=== PATIENT | male | born 1995 | race Caucasian/White ===

== ENCOUNTER 2017-01-27 17:24 | Inpatient (IN) | payer BC, OTHER ==
[~2017-01-27] VITALS: Ht 175.3 cm; Wt 54.4 kg
[2017-01-27 18:17] VITALS: BP 126/74
--- NOTE | 2017-01-27 18:20 | NUR ---
PREADMISSION NOTE Pt is a 21 y/o male admitted [facility] on 01/27/17 for Heroin and Meth dependency and withdrawals. Pt is full code regular diet no fall precautions denies any food or drug allergies, Pt is 5'9 and weights 120lb, Skin is warm dry and intact, pt presented with chills, and irritability. Pt reports using Heroin first time use at age 17, pt has been using 1 gram IV for the past year, last time used was yesterday 1 gram IV, Pt also reports using Meth by smoking, first time use was at age 18, he has been using 0.5 grams daily for a year, last use was yesterday pt smoked 0.5 grams. Pt reported longest being sober for 6 months which was from January 2015 to August 2014. Pt's initial vitals are as BP 126/74, Pulse:130, RR:19 O2 sat 99% 0/10 pain. Pt is placed on a 5 day Subutex taper and a 24hr PRN Ativan. All pertinent information given to rn shift mgr nurse. Addendum: 01/27/17 at 1921 by BRYANNA PINTO RN correction pt has been Sober for January 2015- August 2015 also pts initial COWS is MD katie mendez orders in.
[2017-01-27] MEDS ORDERED: NICOTINE POLACRILEX 4 MG GUM-PK OF TEN BC PRN (18:30)
[2017-01-27] MEDS ORDERED: ONDANSETRON ODT 4 MG TAB.RAPDIS SL PRN (18:30)
[2017-01-27] MEDS ORDERED: DICYCLOMINE HCL 20 MG TABLET PO PRN (18:30)
[2017-01-27] MEDS ORDERED: IBUPROFEN 600 MG TABLET PO PRN (18:30)
[2017-01-27] MEDS ORDERED: CLONIDINE HCL 0.1 MG TABLET PO PRN (18:30)
[2017-01-27] MEDS ORDERED: ONDANSETRON 4 MG/2 ML VIAL IM PRN (18:30)
[2017-01-27] MEDS ORDERED: MAG HYDROX/AL HYDROX/SIMETH 30 ML LIQUID UDC PO PRN (18:30)
[2017-01-27] MEDS ORDERED: LORAZEPAM 2 MG/1 ML VIAL IM PRN (18:30)
[2017-01-27] MEDS ORDERED: ACETAMINOPHEN 325 MG TABLET PO PRN (18:30)
[2017-01-27] MEDS ORDERED: MIRALAX 17 GM POWD.PACK PO PRN (18:30)
[2017-01-27] MEDS ORDERED: diphenhydrAMINE 50 MG CAPSULE PO PRN (18:30)
[2017-01-27] MEDS ORDERED: BUPRENORPHINE HCL 2 MG TAB.SUBL SL PRN (18:30)
[2017-01-27] MEDS ORDERED: LOPERAMIDE HCL 2 MG CAPSULE PO PRN ×2 (18:30)
[2017-01-27] MEDS ORDERED: NICOTINE 14 MG/24HR PATCH TD PRN (18:30)
[2017-01-27 18:50] LABS: *AMPHETAMINE, URINE POSITIVE (NEGATIVE); *BARBITURATE, URINE NEGATIVE (NEGATIVE); *CANNABINOID, URINE NEGATIVE (NEGATIVE); *COCCAINE, URINE POSITIVE (NEGATIVE); *OPIATE, URINE POSITIVE (NEGATIVE); *PHENCYCLIDINE SCREEN,URINE NEGATIVE (NEGATIVE)
--- NOTE | 2017-01-27 19:30 | NUR ---
START OF SHIFT Patient arrived on the unit at 1806. Day shift nurse began admission process. hourly shift will complete admission. Patient is alert and oriented x4, and reports symptoms of withdrawal: restlessness, anxiety, chills/flushing, and generalized body aches. Respirations are even and unlabored. Safety measures in place, side rails up x2, bed locked in low position. Will continue to monitor.
[2017-01-27 19:48] LABS: BASOPHILS % (AUTO) 0.2 % (0.0-2.0); EOSINOPHILS # (AUTO) 0.1 K/uL (0.0-0.7); EOSINOPHILS % (AUTO) 0.7 % (0.0-7.0); HEMATOCRIT 42.2 % (40-50); HEMOGLOBIN 14.3 G/DL (14.0-18.0); LYMPHOCYTES # (AUTO) 0.8 K/UL (0.8-4.8); LYMPHOCYTES % (AUTO) 9.9 % (20.5-51.5); MEAN CORPUSCULAR HEMOGLOBIN 28.4 UUG (27.0-31.0); MEAN CORPUSCULAR HGB CONC 34 g/dL (32.0-37.0); MEAN CORPUSCULAR VOLUME 83.7 FL (82.0-92.0); MONOCYTES # (AUTO) 0.5 K/UL (0.1-1.30); MONOCYTES % (AUTO) 6.3 % (0.0-11.0); NEUTROPHILS # (AUTO) 6.9 K/UL (1.8-8.9); NEUTROPHILS % (AUTO) 82.9 % (38.5-71.5); PLATELET COUNT (AUTO) 250 K/UL (150-450); RED BLOOD CELL COUNT(AUTO) 5.04 MIL/UL (4.7-6.1); WHITE BLOOD COUNT (AUTO) 8.3 K/UL (4.0-11.2)
[2017-01-27 20:00] VITALS: BP 108/62
[2017-01-27 20:00] LABS: ALANINE AMINOTRANSFERASE 42 U/L (16-63); ALKALINE PHOSPHATASE 77 U/L (50-136); ASPARTATE AMINOTRANSFERASE 27 U/L (15-37); BILIRUBIN,TOTAL 0.4 mg/dL (0.2-1.0); CARBON DIOXIDE 21 mmol/L (21-32); CHLORIDE 105 mmol/L (98-107); CREATININE 0.7 mg/dL (0.6-1.3); GLUCOSE 137 mg/dL (74-106); POTASSIUM 3.7 mmol/L (3.5-5.1); TOTAL PROTEIN, SERUM 6.8 g/dL (6.4-8.2); UREA NITROGEN, BLOOD 10 mg/dL (7-18)
[2017-01-27] MEDS: LORAZEPAM 1 MG TABLET PO PRN ×2 (20:00→22:25)
--- NOTE | 2017-01-27 20:00 | NUR ---
PRN ATIVAN Patient's CIWA is 16, PRN Ativan given PO as ordered for CIWA of 16 or higher. Patient's respirations are 20/min, even and unlabored. Safety measures in place, side rails up x2, bed locked in low position, call light within reach. Will reassess in one hour. Addendum: 01/28/17 at 0530 by RAFAEL BEY LVN Dosage: 2mg
--- NOTE | 2017-01-27 20:00 | NUR ---
ADMISSION NOTE Patient is a 21 y/o male admitted on 01/27/17 for heroin and methamphetamine dependence, arrived on the unit at 1806. Pt has NKA, denies history of seizures, FULL code and on regular diet. Pt was able to provide UDS. Upon admission COWS was 15, BP 126/74, Pulse:130, RR:19 O2 sat 99% 0/10 pain, T: 98.6. Weight 120, height 59". Pt reports he does not have a PCP, smokes about a pack a day, but is trying to cut down. Patient denies being hospitalized within past 30 days. Patient is able to understand and respond to all questions pertaining to his hospitalization. Substance Abuse History is as follows: 1. Heroin (IV) 1 gram daily, last intake of 1 pint on 01/26/17, at this rate for the past year. 2. Methamphetamines (smoke inhalation) 0.5 gram daily, last intake of 0.5 gram on 01/26/17, at this rate for past year. Patient's longest sober period for 6 months from January 2015-August 2015. Treatment history: Pt reports one previous treatment history, [facility] [id number]. Patient also reports [employer]. Pt reports alcoholism on his mother's side of the family. PMH: Anxiety and ADHD. Patient denies any hx of seizures. Patient did not bring any medications from home, but reports having taken Seroquel in the past to help him sleep. Upon assessment, patient is alert and oriented x4, patient states he is feeling "dope sick" reporting the following symptoms: restless legs, anxiety, pins and needles, chills/flushing, and generalized body aches. Respirations are even and unlabored. Denies SOB, chest pain, N/V/D. Bowel sounds active x 4, abdomen soft and non-tender. PERRLA. Skin intact, no open wounds noted. Pt denies SI/HI. Educational information provided and left at bedside. Pt oriented to room and encouraged to notify staff with any concerns. Patient on fall and seizure precautions. Safety measures in place. Call light within reach, side rails up x 2, bed locked and in low position. Will continue to monitor.
[2017-01-27] MEDS: BUPRENORPHINE HCL 2 MG TAB.SUBL SL SCH ×2 (20:01→21:25)
[2017-01-27 20:12] LABS: ETHANOL < 3 MG/DL (0-0)
--- NOTE | 2017-01-27 21:00 | NUR ---
PRN ATIVAN REASSESSMENT Patient reports feeling only "slightly" better. Patient's respirations 20/min, even and unlabored. CIWA remains 16. It appears that PRN Ativan was not effective. Safety measures in place, call light within reach. Will continue to monitor.
--- NOTE | 2017-01-27 22:25 | NUR ---
PRN ATIVAN Patient's CIWA is 16, PRN Ativan 2mg given PO as ordered for CIWA of 16 or higher. Patient's respirations are 20/min, even and unlabored. Safety measures in place, side rails up x2, bed locked in low position, call light within reach. Will reassess in one hour.
--- NOTE | 2017-01-27 23:05 | NUR ---
PRN BENADRYL Patient reports inability to sleep and is requesting aid. PRN Benadryl 50mg given PO. Patient's respirations are even and unlabored. Safety measures in place, side rails up x2, bed locked in low position, call light within reach. Will reassess in one hour.
--- NOTE | 2017-01-27 23:25 | NUR ---
PRN ATIVAN REASSESSMENT Patient reports that he "felt better for a few minutes, then started to feel sick again." PRN Ativan seems ineffective at this time. Patient's respirations are 20/min, even and unlabored. Safety measures in place, side rails up x2, bed locked in low position, call light within reach. Will continue to monitor.
[2017-01-28] VITALS: BP 108/71
--- NOTE | 2017-01-28 00:05 | NUR ---
PRN BENADRYL REASSESSMENT Patient is laying awake in bed, reporting anxiety and restlessness. Patient feels that PRN Benadryl was not effective. SN encouraged relaxation techniques and deep breathing. Safety measures in place, side rails up x2, bed locked in low position, call light within reach. Will continue to monitor.
[2017-01-28] MEDS: LORAZEPAM 1 MG TABLET PO PRN (00:42)
--- NOTE | 2017-01-28 00:42 | NUR ---
PRN MOTRIN AND ATIVAN Patient reports muscle aches of 5/10, mid to lower back pain. Patient's current CIWA score is 15. PRN Motrin 600mg and PRN Ativan 1mg given PO. Patient's respirations are 18/min, even and unlabored. Safety measures in place, side rails up x2, bed locked in low position, call light within reach. Will reassess in one hour.
--- NOTE | 2017-01-28 01:42 | NUR ---
PRN MOTRIN AND ATIVAN REASSESSMENT Patient is resting in bed with eyes closed, respirations 18/min, even and unlabored. PRN Motrin and Ativan effective. Safety measures in place, side rails up x2, bed locked in low position, call light within reach. Will continue to monitor.
--- NOTE | 2017-01-28 04:00 | NUR ---
4AM VITALS REFUSED, COWS DEFERRED Patient refused 4AM vital signs. COWS deferred due to patient sleeping; to be scored and assessed while patient is awake per protocol. Patient's respirations are even and unlabored, 16/min. Safety measures in place, side rails up x2, bed locked in low position, call light within reach. Will continue to monitor.
--- NOTE | 2017-01-28 07:10 | NUR ---
start of Shift endorsement received from nightshift nurse. PT is a 21 y/o male admitted for Heroin and Meth dependence. Pt has been placed on a 5 day Subutex taper. PT is also receiving PRN Ativan for anxiety. PT is experiencing moderate to severe withdrawal symptoms AEB COWS 15, CIWA 15 at 2100. PT Received PRN Ativan x3, Motrin x1, Benadryl x1. Pt reports sleeping 5 hours. Pt is sleeping at this time, breathing even and unlabored. Responsive to name and touch. VS WNL. Full Code. PT is alert and oriented x4. Pt is in STABLE condition at this time. Remains compliant with medication and diet regimen. All needs have been met, All safety measures in place per hospital policy. Bed in lowest position, side rails up x2, call-light within reach. Will continue to monitor
--- NOTE | 2017-01-28 07:10 | NUR ---
END OF SHIFT Patient is a 21-year-old male admitted on 01/27/17 for heroin and methamphetamine dependence, arrived on the unit at 1806. Pt has NKA, denies history of seizures, FULL code and on regular diet. Patient is on a 5-day Subutex taper. Patient received the following PRNs during shift: Ativan 2mg at 2000, Ativan 2mg at 2225, Benadryl 50mg at 2305, and PRN Motrin 600mg and Ativan 1mg at 0042. Patient slept for 5 hours, total intake was 1,335 mL, void x2, stool x0. Last COWS was 15, last CIWA for PRN Ativan was 15. Patient is on fall and seizure precautions. Safety measures in place, side rails up x2, bed locked in low position, call light within reach. Will endorse to day shift.
[2017-01-28 08:00] VITALS: BP 102/66
[2017-01-28] MEDS ORDERED: TUBERCULIN,PURIF.PROT.DERIV. 5 TU/0.1 ML TEST ID ONE ×2 (09:00→11:00)
[2017-01-28] MEDS ORDERED: BUPRENORPHINE HCL 2 MG TAB.SUBL SL SCH (09:00)
[2017-01-28 12:00] VITALS: BP 106/50
[2017-01-28] MEDS ORDERED: BUPRENORPHINE HCL 2 MG TAB.SUBL SL ONE (13:00)
[2017-01-28 16:00] VITALS: BP 99/64
[2017-01-28] MEDS ORDERED: LORAZEPAM 1 MG TABLET PO ONE ×2 (16:00→21:00)
[2017-01-28] MEDS: BUPRENORPHINE HCL 2 MG TAB.SUBL SL SCH ×2 (16:35→21:51)
--- NOTE | 2017-01-28 19:09 | NUR ---
End of Shift Endorsement given to nightshift nurse. PT is a 21 y/o male admitted for Heroin and Meth dependence. Pt has been placed on a 5 day Subutex taper. PT has received one time dose of Ativan per Dr. Mahan. PT is experiencing moderate symptoms of withdrawal AEB COWS 5 at 1600. PT did not receive any PRN medications. Pt has spent most of the day in his room sleeping. Pt is sleeping at this time, breathing even and unlabored. Pt reports feeling tired and just wants to rest. Responsive to name and touch. VS WNL. Full Code. Intake: 1600ml, Void x2, BM x1. PT is alert and oriented x4. Pt is in STABLE condition at this time. Remains compliant with medication and diet regimen. All needs have been met, All safety measures in place per hospital policy. Bed in lowest position, side rails up x2, call-light within reach. Will continue to monitor
--- NOTE | 2017-01-28 19:15 | NUR ---
Start of Shift Patient Received. Patient is in his room sleeping. Breathing even and non labored. No signs of pain or discomfort noted. Patient is a 21 year old male, admitted on 01/27/17 for Opiate Dependence under the care of Dr. Mahan and is currently receiving a 5 day Subutex taper. Patient verbalizes no known allergies, wishes to be full code, following a regular diet, placed on fall and seizure precautions, with skin noted intact. Patients past medical history noted as anxiety and ADHD. Per endorsement, patients last COWS noted to be 5. All needs attended to promptly. Will continue plan of care as ordered.
[2017-01-28 21:04] VITALS: BP_SYST 104; BP_SYST 99; BP_DIAS 59; BP_DIAS 89
[2017-01-28] MEDS: GABAPENTIN 300 MG CAPSULE PO SCH (21:51)
[2017-01-29] VITALS: BP 96/64
[2017-01-29 04:15] VITALS: BP 100/63
--- NOTE | 2017-01-29 07:13 | NUR ---
End of Shift Patient is in bed sleeping. Breathing even and non labored. Patient is a 21 year old male, admitted on 01/27/17 for Opiate Dependence under the care of Dr. Mahan and is currently receiving a 5 day Subutex taper. No Known Allergies, Full Code, Regular Diet, placed on fall and seizure precautions, with skin noted intact. Patients past medical history noted as anxiety and ADHD. No PRN Medications administered. Last noted COWS 4. All needs attended to promptly. Will endorse to continue plan of care as ordered.
[2017-01-29 08:00] VITALS: BP 103/52
--- NOTE | 2017-01-29 08:00 | NUR ---
VSS 97.4-98-19 BP 103/52. SATS 97% ON ROOM AIR. COWS=6 PATIENT APPEARS SLIGHTLY WITHDRAWN, AND SEEMS TO BE IN A LIGHT PHASE OF WITHDRAWAL. PATIENT IS SLIGHTLY TREMULOUS AND SLIGHTLY ANXIOUS. PATIENT STATES THAT HE WILL PERFORM ADLS WITHOUT ASSIST. MAKES GOOD EYE TO EYE CONTACT, COOPERATES WITH NURSING CARE, HAS NO MEMORY LOSS, REPORTS A STEADY GAIT. PATIENT SHOWS NO SIGNS OF ACUTE CARDIAC/RESPIRATORY DISTRESS OR SUPPRESSION.
[2017-01-29] MEDS ORDERED: BUPRENORPHINE HCL 2 MG TAB.SUBL SL SCH ×2 (09:00→15:00)
[2017-01-29] MEDS: GABAPENTIN 300 MG CAPSULE PO SCH ×3 (10:06→20:49)
[2017-01-29 12:00] VITALS: BP 90/62
--- NOTE | 2017-01-29 12:00 | NUR ---
VSS 97.9-90-20 BP 90/62. SATS 99% ON ROOM AIR. PATIENT APPEARS RESTED AND SHOWS NO SIGNS OF WITHDRAWAL. COWS=6. PATIENT SHOWS NO SIGNS OF WITHDRAWAL. PATIENT ATE 75% ON LUNCH WITHOUT DIFFICULTY. PATIENT'S MOTHER DALTON GOMEZ CALLED AND WANTED INFORMATION ON WHAT MEDS THAT THE PATIENT WAS BEING TREATED FOR. NURSE CLEARLY DID NOT PROVIDE THIS INFORMATION THE TRUE IDENTITY OF THE MOTHER CANNOT BE CONFIRMED IN A PHONE CALL. TO PROTECT PATIENT CONFIDENTIALITY, NURSE OBTAINED MOTHER'S PHONE NUMBER AND GAVE IT TO DR. NGUYEN AND THE PATIENT. DR. NGUYEN CALLED AT EXT. [phone] AND STATED HE WOULD CALL THE MOTHER AT THE PHONE NUMBER PROVIDED. PATIENT ALSO CONFIRMED THAT HE WOULD CALL HIS MOTHER. PATIENT SHOWS NO SIGNS OF ACUTE CARDIAC/RESPIRATORY DISTRESS OR SUPPRESSION.
[2017-01-29] MEDS: BUPRENORPHINE HCL 2 MG TAB.SUBL SL SCH ×3 (12:49→20:49)
--- NOTE | 2017-01-29 14:01 | NUR ---
Patient is 21 y/o male who present to [facility] for medically supervised withdrawal from opiods. Tolerating current diet,eating 75-100% of meals Anthropometry: current weight 120lb,BMI 17.7-underweight, physical assessment report suggest mild/moderate fat and muslce loss to chest/lower ribs and clavicle regions labs: 01/27 glucose-137(h) medication:no DNI nutrition diagnosis: underweight related to substance use as evidenced by BMI 17.7 nutrition intervention: encourage continue with good po intake, rec HS monitor:po intake,weight,new labs outcome: maintain 75-100% of PO intake during hospital stay no N/V/D/C healthy weight gain toward goal during hospital stay Addendum: 01/30/17 at [address] Amended: Links added.
[2017-01-29] MEDS: LORAZEPAM 1 MG TABLET PO PRN ×3 (15:17→20:49)
[2017-01-29 16:00] VITALS: BP 104/60
--- NOTE | 2017-01-29 16:00 | NUR ---
VSS 98.1-89-20 BP 104/60. SATS 100% ON ROOM AIR. COWS=7. PATIENT OOB AND WENT OUT TO SMOKE. NO SIGNS OF ACUTE CARDIAC/RESPIRATORY DISTRESS OR SUPPRESSION. PATIENT REMAINS ON SUBUTEX TAPER.
[2017-01-29] MEDS: HYDROXYZINE PAMOATE 25 MG CAPSULE PO PRN (16:51)
[2017-01-29] MEDS: METHOCARBAMOL 750 MG TABLET PO PRN (16:51)
--- NOTE | 2017-01-29 17:06 | NUR ---
Client was prompted to attend group therapy. Client stated that he would make an effort to attend.
--- NOTE | 2017-01-29 18:00 | NUR ---
END OF SHIFT PATIENT WAS GIVEN ROBAXIN 750 MG, BENTYL 20 MG PO PRN, VISTARIL 25 MG PO PRN @ 17:00 HOURS. NURSE ALSO HAD TO ADD ATIVAN 2 MG PO PRN AGITATION AND RESTLESSNESS. PATIENT THEN WENT OUT TO SMOKE. AMBULATES WITH A STEADY GAIT. SHOWS NO SIGNS OF ACUTE CARDIAC/RESPIRATORY DISTRESS OR SUPPRESSION.
--- NOTE | 2017-01-29 19:10 | NUR ---
Start of Shift Patient Received. Patient is in activities room participating in group activities. Patient is a 21 year old male, admitted on 01/27/17 for Opiate Dependence under the care of Dr. Mahan and is currently receiving a 5 day Subutex taper. No Known Allergies, Full Code, Regular Diet, placed on fall and seizure precautions, with skin noted intact. Patients past medical history noted as anxiety and ADHD. Per endorsement, patient was given PRN Robaxin and Clonidine with medications noted to be effective. Last noted COWS 4. All needs attended to promptly. Will continue plan of care as ordered. Addendum: 01/30/17 at 2035 by SISSY GARCIAS LVN ENTERED IN ERROR
--- NOTE | 2017-01-29 19:25 | NUR ---
Start of Shift Patient Received. Patient is in activities room participating in group activities. Patient is a 21 year old male, admitted on 01/27/17 for Opiate Dependence under the care of Dr. Mahan and is currently receiving a 5 day Subutex taper. No Known Allergies, Full Code, Regular Diet, placed on fall and seizure precautions, with skin noted intact. Patients past medical history noted as anxiety and ADHD. Per endorsement, patient was given several PRN Medications for increased signs and symptoms of withdrawal. Last noted COWS 7. All needs attended to promptly. Will continue plan of care as ordered.
[2017-01-29 20:39] VITALS: BP 131/73
--- NOTE | 2017-01-29 20:50 | NUR ---
PRN Medication Administration Patient is noted verbalizing increased anxiety and agitation. CIWA noted to be 14. PRN Ativan 1mg administered with routine medications. Will continue to monitor
--- NOTE | 2017-01-29 21:40 | NUR ---
PRN Medication Reassessment Patient noted in bed sleeping but easily aroused to verbal stimuli. Breathing even and non labored. Patient is able to verbalized "the medication helped me relax. Im just going to hang out in my room and watch a movie till I fall asleep." PRN Ativan 1mg noted to be effective. Will continue to monitor.
[2017-01-30 00:25] VITALS: BP 103/71
[2017-01-30 04:26] VITALS: BP 98/63
[2017-01-30 05:06] LABS: HEPATITIS B SURFACE AG Negative (Negative)
--- NOTE | 2017-01-30 07:15 | NUR ---
End of Shift Patient is in his room, awake, alert and verbally responsive. Breathing even and non labored. Patient is a 44 year old male admitted on 01/26/17 for ETOH Dependence under the care of Dr. Mahan. Patient has completed a 5 day Ativan taper with orders to discharge today 01/30/17. No known allergies, Full Code, Regular Diet, placed on fall and seizure precautions, with skin noted intact. Patients past medical history noted as anxiety, depression, and Hep C (+). Patient refused 2100 dose of sleep medication and received PRN Vistaril and PRN Clonidine with both medications noted to be effective. Last noted CIWA 6. All needs attended to promptly. Will endorse to continue plan of care as ordered.
--- NOTE | 2017-01-30 07:43 | NUR ---
START OF SHIFT NOTE: Received report from veneer splicer nurse. PT is a 21 y/o male admitted for Heroin and Meth dependence. Pt has been placed on a 5 day Subutex taper. Tolerating well. Pt is alert and oriented X4. Color good, skin warm and dry. Respirations even and unlabored. Safety precautions observed. Call light within reach. Will continue to monitor.
[2017-01-30 08:35] VITALS: BP 110/63
[2017-01-30] MEDS ORDERED: INFLUENZA VACCINE 2017-2018 0.5 ML DISP.SYRIN IM ONE (09:00)
--- NOTE | 2017-01-30 09:00 | NUR ---
VSS COWS 4 Flu shot administered LD
[2017-01-30] MEDS: BUPRENORPHINE HCL 2 MG TAB.SUBL SL SCH ×3 (09:41→20:12)
[2017-01-30] MEDS: GABAPENTIN 300 MG CAPSULE PO SCH ×3 (09:41→20:12)
[2017-01-30 12:00] VITALS: BP 114/66
--- NOTE | 2017-01-30 14:37 | NUR ---
Pt still sleeping
--- NOTE | 2017-01-30 15:00 | NUR ---
VSS COWS 4 c/o anxiety, muscle aches
[2017-01-30 17:07] VITALS: BP 111/71
[2017-01-30] MEDS: METHOCARBAMOL 750 MG TABLET PO PRN (17:12)
--- NOTE | 2017-01-30 17:15 | NUR ---
C/O "not feeling well" muscle aches Robaxin 750mg po prn and Clonidine 0.1mg po prn given
--- NOTE | 2017-01-30 18:15 | NUR ---
Pt feels improved after Robaxin and Clonidine. Went downstairs for dinner.
--- NOTE | 2017-01-30 18:30 | NUR ---
END OF SHIFT NOTES: Report given to maintenance mechanic 2nd shift nurse. PT is a 21 y/o male admitted for Heroin and Meth dependence. Pt has been placed on a 5 day Subutex taper. Tolerating well. Pt is alert and oriented X4. Color good, skin warm and dry. Respirations even and unlabored. Vital signs have remained stable throughout shift. Robaxin 750mg po prn and Clonidine 0.1mg po prn 2 1715. Last COWS 4 @ 1500. Safety precautions observed. Call light within reach.
--- NOTE | 2017-01-30 19:10 | NUR ---
Start of Shift Patient Received. Patient is in activities room participating in group activities. Patient is a 21 year old male, admitted on 01/27/17 for Opiate Dependence under the care of Dr. Mahan and is currently receiving a 5 day Subutex taper. No Known Allergies, Full Code, Regular Diet, placed on fall and seizure precautions, with skin noted intact. Patients past medical history noted as anxiety and ADHD. Per endorsement, patient was given PRN Robaxin and Clonidine with medications noted to be effective. Last noted COWS 4. All needs attended to promptly. Will continue plan of care as ordered.
[2017-01-30 20:10] VITALS: BP 147/78
[2017-01-30] MEDS: QUETIAPINE FUMARATE 100 MG TABLET PO PRN (20:12)
--- NOTE | 2017-01-30 20:15 | NUR ---
PRN Medication Administration Patient verbalizing inability of falling asleep. PRN Seroquel administered as per order. Will continue to monitor.
--- NOTE | 2017-01-30 21:00 | NUR ---
PRN Medication Reassessment Patient noted in bed sleeping. Breathing even and non labored. Patient was given PRN Seroquel for inability of falling asleep. PRN Medication noted to be effective. patient continues to sleep with no complications noted. Will continue to monitor.
[2017-01-31 00:38] VITALS: BP 113/69
[2017-01-31 04:25] VITALS: BP 101/63
--- NOTE | 2017-01-31 07:09 | NUR ---
End of Shift Patient is in his bed sleeping. Breathing even and non labored. Patient is a 21 year old male, admitted on 01/27/17 for Opiate Dependence and continues on a 5 day Subutex taper. No Known Allergies, Full Code, Regular Diet, placed on fall and seizure precautions, with skin noted intact. Patients past medical history noted as anxiety and ADHD. Patient received PRN Seroquel for sleep with medication noted to be effective. Last noted COWS 9. All needs attended to promptly. Will endorse to continue plan of care as ordered.
--- NOTE | 2017-01-31 07:42 | NUR ---
START OF SHIFT NOTE: Received report from warehouse worker 2nd shift nurse. PT is a 21 y/o male admitted for Heroin and Meth dependence. Pt has been placed on a 5 day Subutex taper. Tolerating well. Pt is alert and oriented X4. Color good, skin warm and dry. Respirations even and unlabored. Safety precautions observed. Call light within reach. Will continue to monitor.
[2017-01-31 08:00] VITALS: BP 110/63
[2017-01-31] MEDS: BUPRENORPHINE HCL 2 MG TAB.SUBL SL SCH ×2 (09:25→21:00)
[2017-01-31] MEDS: GABAPENTIN 300 MG CAPSULE PO SCH ×3 (09:25→20:59)
[2017-01-31 12:56] VITALS: BP 110/69
[2017-01-31 16:00] VITALS: BP 110/69
--- NOTE | 2017-01-31 18:41 | NUR ---
END OF SHIFT NOTE: Report given to restaurant shift leader nurse. PT is a 21 y/o male admitted for Heroin and Meth dependence. Pt has been placed on a 5 day Subutex taper. Tolerating well. Pt is alert and oriented X4. Color good, skin warm and dry. Respirations even and unlabored. Vital signs have remained stable throughout shift. Last COWS 1 @ 1700. Safety precautions observed. Call light within reach.
--- NOTE | 2017-01-31 19:15 | NUR ---
START OF SHIFT NOTE : Patient is a 21 year old male, admitted on 01/27/17 for Opiate Dependence under the care of Dr. Mahan and is currently receiving a 5 day Subutex taper. No Known Allergies, Full Code, Regular Diet, placed on fall and seizure precautions, with skin noted intact. Patients past medical history noted as anxiety and ADHD. Patient received awake, alert and oriented x4, resting in his room. Safety measures in place : bed on lowest position with side rails x2 up for safety, call light within reach. Will continue to monitor closely and offer help.
[2017-01-31 20:00] VITALS: BP 115/77
[2017-01-31] MEDS: CLONIDINE HCL 0.1 MG TABLET PO SCH (20:59)
[2017-01-31] MEDS: HYDROXYZINE PAMOATE 25 MG CAPSULE PO PRN (20:59)
[2017-01-31] MEDS: QUETIAPINE FUMARATE 100 MG TABLET PO PRN (21:00)
--- NOTE | 2017-01-31 21:00 | NUR ---
PRN SEROQUEL , VISTARYL Pt. complains of increased level of anxiety, sleeplessness. PRN SEROQUEL , VISTARYL given as ordered. Safety measures in place : bed on lowest position with side rails x2 up for safety, call light within reach. Will continue to monitor closely and offer help.
--- NOTE | 2017-01-31 22:00 | NUR ---
RE-ASSESSMENT SEROELVIAL ANURAGTARYL Pt. is sleeping, RR=16, unlabored and even . Safety measures in place : bed on lowest position with side rails x2 up for safety, call light within reach. Will continue to monitor closely and offer help.
[2017-02-01] VITALS (7 sets, daily range): BP systolic 90–117; BP diastolic 36–70
--- NOTE | 2017-02-01 06:24 | NUR ---
END OF SHIFT NOTE : Patient is a 21 year old male, admitted on 01/27/17 for Opiate Dependence under the care of Dr. Mahan and is currently receiving a 5 day Subutex taper. No Known Allergies, Full Code, Regular Diet, placed on fall and seizure precautions, with skin noted intact. Patients past medical history noted as anxiety and ADHD. Pt remains compliant with the treatment plan. PRN SEROQUEL, VISTARIL were given during my shift. V/S remain WNL. RR=16, even and unlabored, lungs clear upon auscultation, abdomen soft and non- distended. Pt denies nausea, vomiting and diarrhea. COWS taken when pt. was alert during the night, LAST COWS=2 at 0400 , [id number]=[id number] ml, voided x2 , slept 8 hours. Safety measures in place : bed on lowest position with side rails x2 up for safety, call light within reach. Will continue to monitor closely and offer help.
--- NOTE | 2017-02-01 07:30 | NUR ---
START OF SHIFT Pt is a 21 yr old male, AA&Ox4. Pt was admitted on 01/27/17 for Opiate dependence and is on 5 day Subutex taper as ordered. Medication ying well. Received report from locate technician nurse. pt is full code, regular diet and NKA. Pt is on fall and seizure precautions. Pt received Seroquel PRN for sleep. Medication was effective. Pt slept for 8 hrs. Last COWS score was 2 at 0400. Pt is currently in bed resting with respirations even and unlabored. No acute distress noted. Skin is intact, warm and dry to touch. Pt has Dx of Anxiety, ADHD, and Hep C. Safety precautions observed. Call light is within reach. Will continue to monitor.
[2017-02-01] MEDS ORDERED: BUPRENORPHINE HCL 2 MG TAB.SUBL SL SCH (09:00)
[2017-02-01] MEDS: GABAPENTIN 300 MG CAPSULE PO SCH ×3 (10:02→21:30)
--- NOTE | 2017-02-01 14:36 | NUR ---
Therapist prompted client about group times. Client stated he will attend group this afternoon.
--- NOTE | 2017-02-01 19:10 | NUR ---
END OF SHIFT Pt is a 21 yr old male, AA&Ox4. Pt was admitted on 01/27/17 for Opiate dependence and has completed 5 day Subutex taper as ordered. Medication ying well. Pt has been cooperative with medication regimen and plan of care. No PRN's were given during the day. Last COWS score was 2 at 1600. Pt is to be discharged at tomorrow on 02/02/17. Pt is in stable condition. Safety precautions observed. Call light is within reach.
--- NOTE | 2017-02-01 19:15 | NUR ---
START OF SHIFT NOTE : Patient is a 21 year old male, admitted on 01/27/17 for Opiate Dependence under the care of Dr. Mahan and is currently receiving a 5 day Subutex taper. No Known Allergies, Full Code, Regular Diet, placed on fall and seizure precautions, with skin noted intact. Patients past medical history noted as anxiety and ADHD. Patient received awake, alert and oriented x4, socializing with other clients.He will be D/C tomorrow. Safety measures in place : bed on lowest position with side rails x2 up for safety, call light within reach. Will continue to monitor closely and offer help.
[2017-02-01] MEDS: HYDROXYZINE PAMOATE 25 MG CAPSULE PO PRN (21:30)
[2017-02-01] MEDS: CLONIDINE HCL 0.1 MG TABLET PO SCH (21:30)
[2017-02-01] MEDS: QUETIAPINE FUMARATE 100 MG TABLET PO PRN (21:30)
[2017-02-01] MEDS ORDERED: DICY20TA28 PO (21:55)
[2017-02-01] MEDS ORDERED: QUET100T PO (21:55)
[2017-02-01] MEDS ORDERED: IBUP-1955 PO (21:55)
[2017-02-01] MEDS ORDERED: GABA-534 PO ×2 (21:55)
[2017-02-01] MEDS ORDERED: CLON0.1T14 PO (21:55)
[2017-02-01] MEDS ORDERED: HYDR-3895 PO (21:55)
[2017-02-01] MEDS ORDERED: METH-406 PO (21:55)
--- NOTE | 2017-02-02 06:41 | NUR ---
END OF SHIFT NOTE : Patient is a 21 year old male, admitted on 01/27/17 for Opiate Dependence under the care of Dr. Mahan and is currently receiving a 5 day Subutex taper. No Known Allergies, Full Code, Regular Diet, placed on fall and seizure precautions, with skin noted intact. Patients past medical history noted as anxiety and ADHD Pt remains compliant with the treatment plan. PRN SEROQUEL, VISTARIL were given during my shift. RR=16, even and unlabored, lungs clear upon auscultation, abdomen soft and non- distended. Pt denies nausea, vomiting and diarrhea. COWS taken when pt. was alert during the night, LAST COWS=1 at 0400 , INTAKE= 700 ml, voided x2 , slept 10 hours. Safety measures in place : bed on lowest position with side rails x2 up for safety, call light within reach. Will continue to monitor closely and offer help.
--- NOTE | 2017-02-02 07:36 | NUR ---
START OF SHIFT Received report from night nurse. 21 year old male admitted on 01/27/17 for opiate and meth withdrawals. Pt has completed 5 day Subutex taper and is medically cleared for discharge. Pt does not present with acute s/s of withdrawals throughout night and remains safe throughout hospitalization. Most recent COWS is 1, pt slept for 10 hours, no PRN medications needed or administered. Will continue to monitor.
[2017-02-02 08:39] VITALS: BP 100/60
[2017-02-02] MEDS: GABAPENTIN 300 MG CAPSULE PO SCH (09:29)
--- NOTE | 2017-02-02 09:50 | NUR ---
D/C NOTES Pt is A/O x4. V/S remain WNL. Pt denies SI/HI or hallucinations. Pt shows no s/s of acute withdrawal at this time, and is stable. has medically cleared pt for d/c. Education on Hepatitis C, smoking cessation and medication side effects provided. Pt verbalizes understanding. All pt belongings are in belonging bag, including prescriptions, pt did not have any home medications. Refuses PNU vaccination. Pt is being accompanied by SIGN LANGUAGE INTERPRETER at this time to be transported to rehab. All needs met.
== END 2017-02-02 09:50 | disposition other institution (70) | DRG 895 ==
LOC: SRC 17:24
PROVIDERS: ADMIT Internal Medicine; ATTEND Internal Medicine
PROC: HZ2ZZZZ Detoxification Services for Substance Abuse Treatment (ICD-10-PCS; principal; 2017-01-27)
PROC: HZ31ZZZ Individual Counseling for Substance Abuse Treatment, Behavioral (ICD-10-PCS; 2017-01-28)
PROC: HZ41ZZZ Group Counseling for Substance Abuse Treatment, Behavioral (ICD-10-PCS; 2017-01-30)
DX: F11.23 Opioid dependence with withdrawal (principal); F14.20 Cocaine dependence, uncomplicated; F15.93 Other stimulant use, unspecified with withdrawal; F17.210 Nicotine dependence, cigarettes, uncomplicated; Z59.0 Homelessness; Z81.1 Family history of alcohol abuse and dependence; Z82.49 Family history of ischemic heart disease and other diseases of the circulatory system; Z83.518 Family history of other specified eye disorder; F90.9 Attention-deficit hyperactivity disorder, unspecified type; Z91.89 Other specified personal risk factors, not elsewhere classified; Z20.5 Contact with and (suspected) exposure to viral hepatitis; F13.10 Sedative, hypnotic or anxiolytic abuse, uncomplicated; G47.50 Parasomnia, unspecified; R73.9 Hyperglycemia, unspecified; Z59.1 Inadequate housing; F41.9 Anxiety disorder, unspecified
CPT/HCPCS: 36415; 70030-TC; 80307; 80324; 80346; 80353; 80361; 83735; 85025; 86592; 86705; 86803; 87340; 87806; 90686; A4663; G0480; Q0163

== ENCOUNTER 2017-04-13 12:13 | Inpatient (IN) | payer BC, OTHER ==
[~2017-04-13] VITALS: Ht 175.3 cm; Wt 61.2 kg
[~2017-04-13 12:13] MED LIST: CLON0.1T14 PO; DICY20TA28 PO; GABA-534 PO; HYDR-3895 PO; IBUP-1955 PO; METH-406 PO; QUET100T PO
[2017-04-13 12:30] VITALS: BP 136/79
--- NOTE | 2017-04-13 12:30 | NUR ---
Initial Assessment Pt is a 22 y/o male, NKA's re-admission here with Opiate dependence r/t Heroin 0.5-1g IV or IM daily for the last month with the last use 1 day ago, Cocaine used occasionally of unknown amounts with the last use 2 weeks ago, Methamphetamine used occasionally of unknown amounts with the last use 1 month ago and Liquors used occasionally with the last use of wine last night of 2 bottles of 750mL. Pt smokes of 1 pack of cigarettes daily. PHx: ADHD, anxiety, Hep C+, insomnia & OD at age 19 from drugs. 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 No home medications brought but states that he takes Seroquel at home for insomnia. Pt denies ever having a seizure. Pt has returned here since his last admission 01/2017 and states that he has no stable living standards with his girlfriend and states the last time he had rehab was at [facility] 2014. Pt denies having an internal MD, no psychologist or psychiatrist. FHx of his bother with substance abuse. Pt is A&Ox 4, ambulatory independently & here with no intoxification. Features symmetrical, PERRLA 6mm very dilated, c/o mild CABRERA, no dizziness. Regular heart sounds, pt denies chest pain, pulses present on BLE's, BUE's, no edema, JVD or carotid pulsations noted. Clear lung sounds in bilateral U/L lobes, no SOB or acute respiratory distress noted. Active bowl sounds in all 4 quads, last BM 2 days ago, no constipation or diarrhea noted. Pt denies dysuria. Skin is not intact with tracts and nodules on BUE's and Bilateral feet, no open wounds noted. W/D symptoms of anxiety, irritable, is flushed with clammy skins, c/o hot flashes, chills, has nasal congestions and runny nose, watery eyes, sneezing, restlessness, HR 120, c/o ab cramps, body pain generalized 7/10, & goose bumps present. Temp 98.4, HR 120, RR 20, BP 136/79, SpO2 99% RA, 7/10 general pain COWS 22 CIWA 12
[2017-04-13] MEDS ORDERED: DICYCLOMINE HCL 20 MG TABLET PO PRN (13:15)
[2017-04-13] MEDS ORDERED: ONDANSETRON 4 MG/2 ML VIAL IM PRN (13:15)
[2017-04-13] MEDS ORDERED: HYDROXYZINE PAMOATE 25 MG CAPSULE PO PRN (13:15)
[2017-04-13] MEDS ORDERED: DOCUSATE SODIUM 250 MG CAPSULE PO PRN (13:15)
[2017-04-13] MEDS ORDERED: LOPERAMIDE HCL 2 MG CAPSULE PO PRN ×2 (13:15)
[2017-04-13] MEDS ORDERED: diphenhydrAMINE 50 MG CAPSULE PO PRN (13:15)
[2017-04-13] MEDS ORDERED: IBUPROFEN 600 MG TABLET PO PRN (13:15)
[2017-04-13] MEDS ORDERED: MAG HYDROX/AL HYDROX/SIMETH 30 ML LIQUID UDC PO PRN (13:15)
[2017-04-13] MEDS ORDERED: MAGNESIUM HYDROXIDE 30 ML LIQUID UDC PO PRN (13:15)
[2017-04-13] MEDS ORDERED: ACETAMINOPHEN 325 MG TABLET PO PRN (13:15)
[2017-04-13] MEDS ORDERED: BUPRENORPHINE HCL 2 MG TAB.SUBL SL PRN (13:15)
[2017-04-13] MEDS ORDERED: MIRALAX 17 GM POWD.PACK PO PRN (13:15)
[2017-04-13] MEDS ORDERED: ONDANSETRON ODT 4 MG TAB.RAPDIS SL PRN (13:15)
[2017-04-13] MEDS ORDERED: LORAZEPAM 1 MG TABLET PO SCH ×2 (13:30→21:00)
[2017-04-13] MEDS: BUPRENORPHINE HCL 2 MG TAB.SUBL SL SCH ×3 (13:39→21:38)
--- NOTE | 2017-04-13 13:40 | NUR ---
PRN Medication Administration Pt is in bed with anxiety, irritability, is flushed with clammy skins, PERRLA 6mm very dilated, c/o nausea, hot flashes, chills, has nasal congestions and runny nose, watery eyes, sneezing, restlessness, HR 120, c/o ab cramps, body pain generalized /, & goose bumps, COWS 22 CIWA 12; PRNs Motrin 600mg, Zofran 4mg SL, Bentyl 20mg PO, & Clonidine 0.1mg, with scheduled Subutex 4mg SL for initial dose. Will reassess in 1H.
[2017-04-13] MEDS: CLONIDINE HCL 0.1 MG TABLET PO PRN ×2 (13:41→21:39)
--- NOTE | 2017-04-13 14:30 | NUR ---
Reassessment Pt is resting in bed watching T.V. with decreased anxiety, restlessness, PERRLA 4mm, Radial pulse 108, denies ab cramps & denies nausea and states general pain is now 3/10; effective Motrin, Bentyl , Zofran and clonidine. Will cont. to monitor the pt.
[2017-04-13 15:45] LABS: *AMPHETAMINE, URINE NEGATIVE (NEGATIVE); *BARBITURATE, URINE NEGATIVE (NEGATIVE); *CANNABINOID, URINE NEGATIVE (NEGATIVE); *COCCAINE, URINE NEGATIVE (NEGATIVE); *OPIATE, URINE POSITIVE (NEGATIVE); *PHENCYCLIDINE SCREEN,URINE NEGATIVE (NEGATIVE)
[2017-04-13 16:00] VITALS: BP 121/73
[2017-04-13] MEDS: LORAZEPAM 1 MG TABLET PO PRN (16:31)
--- NOTE | 2017-04-13 16:34 | NUR ---
PRN Medication Administration Pt is in room with restlessness and anxiety, Radial pulse 110, pt denies chest pain; PRN Ativan 2mg given for anxiety with scheduled Subutex 4mg SL as ordered. Will reassess in 1H.
--- NOTE | 2017-04-13 17:30 | NUR ---
Reassessment Pt is in his room eating dinner, no anxiety present and he states that he feels calmer; Ativan is effective. Will cont.to monitor the pt.
--- NOTE | 2017-04-13 18:47 | NUR ---
End of the Shift Pt is a 22 y/o male here for Heroin IV 0.5-1g daily for 1 month, & Cocaine, Meth and Liquor occasionally; 5 day Subutex taper started today at 1300H. HHx: ADHD, anxiety, OD at age 19 yrs old, smoker, Hep C+. Pt is a full code, regular diet, NKA, fall precautions ordered. BP stable, HR 120bpm during admission yet decreased to 99 s/p taper and PRN medication administration. Pt given PRN Bentyl, Clonidine, Motrin, Zofran with initial scheduled Subutex taper, pt was still anxious at 1630 so PRN Ativan given. COWS decreased from 22 at admission to last COWS 13. Pt attended group therapy. No hallucinations, delusions or suicidal ideations noted. Skin has tracts on BUE's and BLE's with raised nodules, no open wounds noted. Endorsed to night nurse to f/u with blood draw.
--- NOTE | 2017-04-13 19:15 | NUR ---
START OF SHIFT NOTE : Pt is a 22 y/o male admitted top [facility] for Heroin, Cocaine denependence on 04/13/2017, pt. also use Meth and ETOH occasionally; Pt. placed 5 day Subutex taper started on 04/13/2017. Past Medical History: ADHD, anxiety, OD at age 19 yrs old, smoker, Hep C+. Pt is a full code, regular diet, NKA, fall precautions ordered. No hallucinations, delusions or suicidal ideations noted. Pt. is in the good mood, complains of sleeplessness and increased level of anxiety. Safety measures in place : bed on lowest position with side rails x2 up for safety, call light within reach. Will continue to monitor closely and offer help.
[2017-04-13 20:00] VITALS: BP 110/75
--- NOTE | 2017-04-13 21:00 | NUR ---
PRN CATAPRES Pt. complains of increased level of anxiety. PRN CLONIDINE given as ordered. Safety measures in place : bed on lowest position with side rails x2 up for safety, call light within reach. Will continue to monitor closely and offer help.
[2017-04-13] MEDS: GABAPENTIN 300 MG CAPSULE PO SCH (21:39)
[2017-04-13 21:43] LABS: BASOPHILS % (AUTO) 0.4 % (0.0-2.0); EOSINOPHILS # (AUTO) 0.1 K/uL (0.0-0.7); EOSINOPHILS % (AUTO) 0.9 % (0.0-7.0); HEMATOCRIT 40.4 % (36.7-47.1); HEMOGLOBIN 13.9 g/dL (12.5-16.3); LYMPHOCYTES # (AUTO) 2.1 K/uL (20.0-40.0); LYMPHOCYTES % (AUTO) 25.1 % (20.5-51.5); MEAN CORPUSCULAR HEMOGLOBIN 29.9 uug (23.8-33.4); MEAN CORPUSCULAR HGB CONC 34 g/dL (32.5-36.3); MEAN CORPUSCULAR VOLUME 86.9 fL (73.0-96.2); MONOCYTES # (AUTO) 0.5 K/uL (2.0-10.0); MONOCYTES % (AUTO) 6.5 % (0.0-11.0); NEUTROPHILS # (AUTO) 5.6 K/uL (1.8-8.9); NEUTROPHILS % (AUTO) 67.1 % (38.5-71.5); PLATELET COUNT (AUTO) 219 K/uL (152-348); RED BLOOD CELL COUNT(AUTO) 4.65 MIL/uL (4.06-5.63); WHITE BLOOD COUNT (AUTO) 8.3 K/uL (3.6-10.2)
[2017-04-13 21:54] LABS: ETHANOL < 3 MG/DL (0-0)
[2017-04-13 21:57] LABS: ALANINE AMINOTRANSFERASE 34 U/L (16-63); ALKALINE PHOSPHATASE 74 U/L (50-136); ASPARTATE AMINOTRANSFERASE 23 U/L (15-37); BILIRUBIN,TOTAL 0.3 mg/dL (0.2-1.0); CARBON DIOXIDE 26 mmol/L (21-32); CHLORIDE 106 mmol/L (98-107); CREATININE 1.1 mg/dL (0.6-1.3); GLUCOSE 112 mg/dL (74-106); MAGNESIUM 1.8 mg/dL (1.8-2.4); POTASSIUM 3.9 mmol/L (3.5-5.1); TOTAL PROTEIN, SERUM 6.8 g/dL (6.4-8.2); UREA NITROGEN, BLOOD 12 mg/dL (7-18)
--- NOTE | 2017-04-13 22:00 | NUR ---
RE-ASSESSMENT CATAPRES Pt. is sleeping, RR=16 unlabored and even. Safety measures in place : bed on lowest position with side rails x2 up for safety, call light within reach. Will continue to monitor closely and offer help.
[2017-04-14 04:00] VITALS: BP 108/60
--- NOTE | 2017-04-14 07:08 | NUR ---
END OF SHIFT NOTE : Pt is a 22 y/o male admitted top [facility] for Heroin, Cocaine denependence on 04/13/2017, pt. also use Meth and ETOH occasionally; Pt. placed 5 day Subutex taper started on 04/13/2017. Past Medical History: ADHD, anxiety, OD at age 19 yrs old, smoker, Hep C+. Pt is a full code, regular diet, NKA, fall precautions ordered. Pt remains compliant with the treatment plan. PRN Catapres given during my shift. V/S remain WNL. RR=16, even and unlabored, lungs clear upon auscultation, abdomen soft and non- distended. Pt denies nausea, vomiting and diarrhea. COWS taken when pt. was alert during the night, LAST CIWA=3 at 0400 , INTAKE= 3,123 ml, voided x3 , slept 6 hours. Safety measures in place : bed on lowest position with side rails x2 up for safety, call light within reach. Will continue to monitor closely and offer help.
--- NOTE | 2017-04-14 07:39 | NUR ---
Start of shift note; Received report from night nurse. Patient is a 22 year old male admitted on 04/13/17 for Opioid withdrawals. Patient is AOX4, complaining of muscle aches, hot and cold sweats, anxiety and intermittent nausea. Patient was started on a 5 day Subutex taper on 04/13/17 to help reduce withdrawal symptoms. Educated patient regarding the importance of compliance to treatment and medication regime, patient verbalized understanding. Encouraged patient to maintain adequate fluids and nutrition, patient verbalized understanding. All safety measures secured. Will continue to monitor patient.
[2017-04-14 08:00] VITALS: BP 102/68
[2017-04-14] MEDS ORDERED: TUBERCULIN,PURIF.PROT.DERIV. 5 TU/0.1 ML TEST ID ONE (09:00)
[2017-04-14] MEDS: BUPRENORPHINE HCL 2 MG TAB.SUBL SL SCH ×3 (09:36→21:27)
[2017-04-14] MEDS: GABAPENTIN 300 MG CAPSULE PO SCH ×3 (09:36→21:27)
[2017-04-14] MEDS: LORAZEPAM 1 MG TABLET PO PRN (10:09)
--- NOTE | 2017-04-14 10:09 | NUR ---
PRN medication; Patient is AOX4. Patient appears to be very anxious and agitated. Non-pharmacological relaxation techniques ineffective. Current COWS of 13 noted manifested by increase in anxiety and agitation, diaphoreses, stomach cramps, muscle aches, HR of 100, tremors to touch noted. PRN Ativan 2mg PO PRN per MD order given for anxiety and agitation related to withdrawal symptoms. Will continue to monitor patient for effectiveness of medication.
--- NOTE | 2017-04-14 11:09 | NUR ---
Re-assessment; Patient is AOX4. Re-assessed patient, current COWS score is 10, patient's anxiety has decreased. PRN Ativan noted to be effective. Will continue to monitor patient.
[2017-04-14 12:00] VITALS: BP 101/63
[2017-04-14 16:00] VITALS: BP 109/69
--- NOTE | 2017-04-14 18:53 | NUR ---
End of shift note; Patient is AOX4. Patient remained compliant with treatment plan and medication regime. Patient noted to have poor eye contact and isolative. Patient encouraged to participate in therapy session and to verbalize feelings. Patient reported diaphoreses, irritability , myalgia, stomach cramps and agitation. Patient had elevated anxiety related to withdrawal symptoms in the morning, patient received PRN Ativan and was noted to be effective. Medications were effective in reducing withdrawal symptoms. Patient's COWS score has improved from a score of 10 to COWS score of 8 at 1600. All safety measures secured. Met all needs.Endorsed to night nurse.
--- NOTE | 2017-04-14 19:15 | NUR ---
START OF SHIFT NOTE : Pt is a 22 y/o male admitted to [facility] for Heroin, Cocaine withdrawal on 04/13/2017, pt. also use Meth and ETOH occasionally; Pt. placed 5 day Subutex taper started on 04/13/2017, tolerating well. COWS=8 at 16:00 , PRN Ativan given during a day shift. Pt. has sad facial expression, states he is thinking about his girl-friend all the time, complains of insomnia, difficulty falling asleep, increased level of anxiety, 4/10. Safety measures in place : bed on lowest position with side rails x2 up for safety, call light within reach. Will continue to monitor closely and offer help.
[2017-04-14 20:00] VITALS: BP 103/58
[2017-04-14] MEDS: CLONIDINE HCL 0.1 MG TABLET PO SCH (20:55)
--- NOTE | 2017-04-14 21:00 | NUR ---
PRN ROBAXIN , SEROQUEL Pt. complains of muscle spasm and insomnia. PRN ROBAXIN , SEROQUEL given as ordered . Safety measures in place : bed on lowest position with side rails x2 up for safety, call light within reach. Will continue to monitor closely and offer help.
[2017-04-14] MEDS: QUETIAPINE FUMARATE 100 MG TABLET PO PRN (21:27)
[2017-04-14] MEDS: METHOCARBAMOL 750 MG TABLET PO PRN (21:27)
--- NOTE | 2017-04-14 22:00 | NUR ---
RE-ASSESSMENT DIPTI MEDINA Pt. is sleeping, RR=16 , unlabored and even. . Safety measures in place : bed on lowest position with side rails x2 up for safety, call light within reach. Will continue to monitor closely and offer help.
--- NOTE | 2017-04-15 06:28 | NUR ---
END OF SHIFT NOTE : Pt is a 22 y/o male admitted to [facility] for Heroin, Cocaine withdrawal on 04/13/2017, pt. also use Meth and ETOH occasionally. Pt. placed 5 day Subutex taper started on 04/13/2017, tolerating well. Pt. is compliant with a TX plan, PRN given during chiropractic neurologist : ROBAXIN, SEROQUEL. COWS taken when pt. was awake, last COWS= 6 at 04:00. [id number] , voided x 3 , slept=9 hours. Safety measures in place : bed on lowest position with side rails x2 up for safety, call light within reach. Will continue to monitor closely and offer help.
--- NOTE | 2017-04-15 07:30 | NUR ---
START OF SHIFT Pt 22 y/o male admitted for opiate dependence. Pt received in room on bed with eyes closed resting, but easily arousable to name. Pt alert and oriented to name, place, and time. Perrla. Skin warm and slightly moist touch. Respirations even and unlabored. Bilateral hand tremors noted slightly. It was reported that pt slept for 9 hours last night. bed on lowest position with side rails x2 up for safety. Call light within reach.
[2017-04-15 08:00] VITALS: BP 84/44
[2017-04-15] MEDS: METHOCARBAMOL 750 MG TABLET PO PRN ×2 (08:40→21:50)
[2017-04-15] MEDS: CLONIDINE HCL 0.1 MG TABLET PO SCH ×2 (08:40→21:51)
[2017-04-15] MEDS: GABAPENTIN 300 MG CAPSULE PO SCH ×3 (08:40→21:51)
--- NOTE | 2017-04-15 08:40 | NUR ---
PRN Pt with c/o generalized body aches 08/15. Robaxin po prn per MD order given and tolerated well.
[2017-04-15 08:43] VITALS: BP 102/62
[2017-04-15] MEDS ORDERED: BUPRENORPHINE HCL 2 MG TAB.SUBL SL SCH (09:00)
--- NOTE | 2017-04-15 09:40 | NUR ---
PRN ANA Pt observed on bed in room watching television.
[2017-04-15 12:09] LABS: HEPATITIS B SURFACE AG Negative (Negative)
[2017-04-15 12:36] VITALS: BP 92/49
[2017-04-15] MEDS ORDERED: KETOROLAC TROMETHAMINE 30 MG INJ IM PRN (13:30)
[2017-04-15] MEDS: BUPRENORPHINE HCL 2 MG TAB.SUBL SL SCH ×2 (14:19→21:50)
[2017-04-15 16:00] VITALS: BP 105/58
--- NOTE | 2017-04-15 19:08 | NUR ---
END OF SHIFT Pt 22 y/o male admitted for medically supervised withdrawal. Pt alert and oriented to name, place, and time. Perrla. Skin warm and moist to touch. Respirations even and unlabored. Bilateral hand tremors noted throughout the day. Pt room with clothes on the floor and spilled drinks noted. COWS= 11@ 0800, 9@1200, and 9@1600. Pt observed isolative to room throughout the day. Pt did attend group activity. Pt was seen by MD today. Pt is currently on a 5 day Subutex taper and is currently on day 3. Pt medication compliant and tolerated well. No ASE noted. Pt was given Robaxin po prn per MD order this morning for generalized body aches 7/10, effective pain scale 3/10. Bed on lowest position with side rails x 2 up for safety. Call light within reach. No distress noted at this time.
--- NOTE | 2017-04-15 19:15 | NUR ---
START OF SHIFT NOTE : Pt is a 22 y/o male admitted to [facility] for Heroin, Cocaine withdrawal on 04/13/2017, pt. also use Meth and ETOH occasionally; Pt. placed 5 day Subutex taper started on 04/13/2017, tolerating well. COWS=9 at 16:00 , PRN ROBAXIN given during a day shift. Pt. states he feels better, still thinking about his girl-friend all the time, complains of insomnia, difficulty falling asleep, increased level of anxiety, 3/10. Pt. provided with verbal instructions about not drinking coffee after 18:00, importance of attending groups and NA/AA meetings. Safety measures in place : bed on lowest position with side rails x2 up for safety, call light within reach. Will continue to monitor closely and offer help.
[2017-04-15 20:00] VITALS: BP 107/70
[2017-04-15] MEDS: QUETIAPINE FUMARATE 100 MG TABLET PO PRN (21:50)
[2017-04-15] MEDS: BACLOFEN 10 MG TABLET PO SCH (21:50)
--- NOTE | 2017-04-16 06:13 | NUR ---
END OF SHIFT NOTE : Pt is a 22 y/o male admitted to [facility] for Heroin, Cocaine withdrawal on 04/13/2017, pt. also use Meth and ETOH occasionally; Pt. placed 5 day Subutex taper started on 04/13/2017, tolerating well. Pt. is compliant with a TX plan, PRN ROBAXIN, SEROQUEL given during overnight associate , pt. states this night he slept very good. COWS taken when pt. was awake, last COWS=9 at 04:00.Intake=1,700ml , voided x 2 , slept= 6 1/2 hours. Safety measures in place : bed on lowest position with side rails x2 up for safety, call light within reach. Will continue to monitor closely and offer help.
--- NOTE | 2017-04-16 07:30 | NUR ---
START OF SHIFT Pt 22 y/o male admitted for medically supervised withdrawal. Pt received in room on bed with eyes closed resting, but easily arousable to name. Pt appears disheveled with hair uncombed. Food wrapping on floor, empty open bottle of water on bed side shelf, and clothes noted scattered throughout the floor. Perrla. Skin warm and moist to touch. Bilateral hand tremors noted. Last cows 9 @0400 was reported. Pt is on a 5 day subutex taper on day 4. It was reported that pt slept for 6.5 hours last night. Bed on lowest position with side rails x2 up for safety. Call light within reach. No distress noted at this time.
[2017-04-16 08:00] VITALS: BP 94/48
[2017-04-16 08:30] VITALS: BP 100/62
[2017-04-16] MEDS: GABAPENTIN 300 MG CAPSULE PO SCH ×3 (09:21→21:41)
[2017-04-16] MEDS: BACLOFEN 10 MG TABLET PO SCH ×2 (09:21→21:42)
[2017-04-16] MEDS: BUPRENORPHINE HCL 2 MG TAB.SUBL SL SCH ×3 (09:21→21:41)
[2017-04-16] MEDS: CLONIDINE HCL 0.1 MG TABLET PO SCH ×2 (09:22→21:42)
--- NOTE | 2017-04-16 11:00 | NUR ---
NSG ENTRY Pt observed in room on bed watching television. Pt appears disheveled. Clothes scattered throughout the room.
[2017-04-16 12:00] VITALS: BP 110/68
[2017-04-16 16:00] VITALS: BP 114/77
--- NOTE | 2017-04-16 18:41 | NUR ---
END OF SHIFT Pt 22 y/o male admitted for medically supervised withdrawal. Pt appears disheveled. Pt alert and oriented to name, place, and time. Perrla. Skin warm and moist to touch. Respirations even and unlabored. Bilateral hand tremors noted. Pt room with clothes on the floor noted. COWS= 9@ 0800, 9@1200, and 9@1600. Pt observed isolative to room throughout the day with minimal peer interaction. Pt did attend group activity. Pt was seen by MD today. Pt is currently on a 5 day Subutex taper and is currently on day 4. Pt medication compliant and tolerated well. No ASE noted. Bed on lowest position with side rails x 2 up for safety. Call light within reach. No distress noted at this time.
[2017-04-16 20:00] VITALS: BP 108/59
--- NOTE | 2017-04-16 20:00 | NUR ---
Start of Shift Patient is admitted for Heroin Withdrawal and intermittent binge drinking of alcohol. Pt is AAOx4 but appears avoidant and disheveled. Room was observed to be unkempt, with clothes scattered all over the floor. Pt with poor eye contact and noted to be worried. Provided education and teachings regarding plan of care and treatment. Also noted to be anxious. Vital signs have been stable throughout the dayshift. Pt is ambulatory with steady gait. No SOB noted. Latest COWS=8. Will continue to monitor.
[2017-04-17] VITALS: BP 109/55
[2017-04-17 04:00] VITALS: BP 115/63
--- NOTE | 2017-04-17 07:10 | NUR ---
End of Shift Patient is admitted for Heroin Withdrawal and intermittent binge drinking of alcohol. No PRN meds administered during the shift. Pt continues to have a blunted affect and disheveled. Room was observed to be unkempt, with clothes scattered all over the floor. Pt with poor eye contact and noted to be worried. Pt with anxiety. Latest COWS=7, slept for 6 hours. Fall, universal, seizure and safety prec in place. Call light within reach. Endorsed to PM shift nurse for continuity of care.
--- NOTE | 2017-04-17 07:30 | NUR ---
START OF SHIFT Pt 22 y/o male admitted for medically supervised withdrawal. Pt received in room on bed with eyes closed resting, but easily arousable to name. Pt appears disheveled. Empty open bottles of water on bed side shelf and clothes scattered throughout the floor. Perrla. Skin warm and moist to touch. Bilateral hand tremors noted. Pt with blunt affect and appears with low motivation for self care. Last cows 7 @0400 was reported. Pt is on a 5 day subutex taper on day 5. It was reported that pt slept for 6 hours last night. Bed on lowest position with side rails x2 up for safety. Call light within reach. No distress noted at this time.
[2017-04-17 08:00] VITALS: BP 94/43
[2017-04-17] MEDS ORDERED: BUPRENORPHINE HCL 2 MG TAB.SUBL SL SCH (09:00)
[2017-04-17] MEDS: GABAPENTIN 300 MG CAPSULE PO SCH ×3 (09:24→20:39)
[2017-04-17] MEDS: BACLOFEN 10 MG TABLET PO SCH ×2 (09:24→20:39)
[2017-04-17] MEDS: BUPRENORPHINE HCL 2 MG TAB.SUBL SL SCH ×2 (09:25→20:39)
[2017-04-17] MEDS: CLONIDINE HCL 0.1 MG TABLET PO SCH ×2 (09:27→20:39)
[2017-04-17 12:35] VITALS: BP 108/65
[2017-04-17 16:00] VITALS: BP 94/53
--- NOTE | 2017-04-17 18:34 | NUR ---
END OF SHIFT Pt 22 y/o male admitted for medically supervised withdrawal. Pt appears disheveled. Pt alert and oriented to name, place, and time. Perrla. Skin warm and moist to touch. Respirations even and unlabored. Bilateral hand tremors noted. Pt observed mostly in room and hallways throughout the day with dirty socks and stains on shirt noted. COWS= 9@ 0800, 9@1200, and 9@1600. Pt observed isolative to room throughout the day with minimal peer interaction. Pt did attend group activity. Pt was seen by today. Pt is currently on a 5 day Subutex taper and is currently on day 5. Pt medication compliant and tolerated well. No ASE noted. Bed on lowest position with side rails x 2 up for safety. Call light within reach.
[2017-04-17 20:00] VITALS: BP 112/73
--- NOTE | 2017-04-17 20:00 | NUR ---
START OF SHIFT NOTE PATIENT IS HERE FOR OPIATE WITHDRAWAL. CONTINUE PATIENT ON SUBUTEX TAPER, TOLERATED WELL.PATIENT DID NOT REQUIRE PRN MEDICATION. LAST COWS 9. RECEIVED PATIENT IN THE ROOM, PATIENT C/O ANXIETY, SWEATING, STUFFY NOSE, LOWER BACK PAIN 05/15, PATIENT STATES HE ATTENDED GROUPS TODAY. SAFETY MEASURES IN PLACE. CALL LIGHT IN REACH. WILL CONTINUE TO MONITOR.
--- NOTE | 2017-04-17 20:36 | NUR ---
PRN SEROQUEL ADMINISTRATION PATIENT REQUESTS FOR SLEEP AID. WILL MONITOR FOR EFFECTIVENESS
[2017-04-17] MEDS: QUETIAPINE FUMARATE 100 MG TABLET PO PRN (20:46)
--- NOTE | 2017-04-17 21:36 | NUR ---
PRN SEROQUEL RE-ASSESSMENT PATIENT ASLEEP AT THIS TIME. RESPIRATION EVEN AND UNLABORED. SAFETY MEASURES IN PLACE. CALL LIGHT IN REACH. WILL CONTINUE TO MONITOR.
--- NOTE | 2017-04-18 07:23 | NUR ---
END OF SHIFT NOTE PATIENT SLEPT FOR 6 HOURS. FLUID INTAKE 1,800 ML. VOIDED X 2. NO BM. CONTINUE PATIENT ON SUBUTEX TAPER, TOLERATED WELL AND NO ADVERSE REACTION. PATIENT WAS GIVEN PRN SEROQUEL FOR SLEEP AND EFFECTIVE. LAST COWS 4. PATIENT COMPLIANT WITH MEDICATION AND TREATMENT PLAN. PATIENT STATES MEDICATION ARE EFFECTIVE IN CONTROLLING HIS WITHDRAWAL SYMPTOMS. SAFETY MEASURES IN PLACE. CALL LIGHT IN REACH. WILL CONTINUE TO MONITOR.
--- NOTE | 2017-04-18 07:40 | NUR ---
START OF SHIFT NOTE Received report from night nurse, 22 year old male admitted for Opioid withdrawal. Patient cont on 5 days Subutex tolerating well. Per endorsement pt was given PRN Seroquel effective per night nurse, last COWS was 4, slept for 5 hours. Patient received awake, alert and oriented x4, educated regarding plan of care for the day, All safety measures in place. Will cont to monitor.
[2017-04-18 08:00] VITALS: BP 99/64
[2017-04-18] MEDS: BACLOFEN 10 MG TABLET PO SCH ×2 (08:46→20:51)
[2017-04-18] MEDS: GABAPENTIN 300 MG CAPSULE PO SCH ×3 (08:46→20:51)
[2017-04-18] MEDS: CLONIDINE HCL 0.1 MG TABLET PO SCH ×2 (08:48→20:51)
[2017-04-18] MEDS ORDERED: BUPRENORPHINE HCL 2 MG TAB.SUBL SL SCH (09:00)
[2017-04-18 12:00] VITALS: BP 96/60
[2017-04-18 16:00] VITALS: BP 102/57
--- NOTE | 2017-04-18 19:06 | NUR ---
END OF SHIFT NOTE Patient completed his Subutex taper tolerated well. During shift pt did not receive any PRN medications. Vital signs remained WNL. Encourage Po fluids as tolerated. Last COWS- 5 @1600. Skin intact warm and dry to touch. Patient attended groups and activities. Patient scheduled for discharge in AM. All needs attended, Safety measures in place. Patient endorsed to night nurse in stable condition.
[2017-04-18 20:00] VITALS: BP 107/64
--- NOTE | 2017-04-18 20:00 | NUR ---
START OF SHIFT NOTE RECEIVED REPORT FROM DAY SHIFT NURSE. PATIENT ADMITTED FOR OPIATE WITHDRAWAL. PATIENT IS MEDICALLY CLEARED TO BE DISCHARGE TOMORROW. PATIENT COMPLETED 5 DAY SUBUTEX TAPER, TOLERATED WELL AND NO ADVERSE REACTION. PATIENT DID NOT REQUIRE PRN MEDICATION, LAST COWS 5. RECEIVED PATIENT IN THE ROOM, WATCHING TV. PATIENT DISHEVELED, CLOTHES THROWN ON FLOOR, PREOCCUPIED , AVOIDANT EYE CONTACT AND RESTRICTED. PATIENT STATES HE WILL BE NEEDING SLEEP MEDICATION LATER. SAFETY MEASURES IN PLACE. CALL LIGHT IN REACH. WILL CONTINUE TO MONITOR.
[2017-04-18] MEDS ORDERED: HYDR-3895 PO (20:12)
[2017-04-18] MEDS ORDERED: CLON0.1T14 PO (20:12)
[2017-04-18] MEDS ORDERED: DICY20TA28 PO (20:12)
[2017-04-18] MEDS ORDERED: GABA-534 PO ×2 (20:12)
[2017-04-18] MEDS ORDERED: IBUP-1955 PO (20:13)
[2017-04-18] MEDS ORDERED: METH-406 PO (20:13)
[2017-04-18] MEDS: QUETIAPINE FUMARATE 100 MG TABLET PO PRN (20:51)
--- NOTE | 2017-04-19 | NUR ---
COWS DEFERRED PATIENT SLEEPING . COWS DEFERRED. VS REFUSED . RESPIRATION EVEN AND UNLABORED. SAFETY MEASURES IN PLACE. CALL LIGHT IN REACH. WILL CONTINUE TO MONITOR
--- NOTE | 2017-04-19 04:00 | NUR ---
COWS DEFERRED PATIENT SLEEPING . COWS DEFERRED. VS REFUSED . RESPIRATION EVEN AND UNLABORED. SAFETY MEASURES IN PLACE. CALL LIGHT IN REACH. WILL CONTINUE TO MONITOR
--- NOTE | 2017-04-19 07:23 | NUR ---
END OF SHIFT NOTE PATIENT SLEPT 7 HOURS. FLUID INTAKE 710 ML. VOIDED X 1. NO BM. PATIENT IN HIS ROOM , MOST OF THE SHIFT. PATIENT IS DISCHARGING TODAY. PATIENT IN THE ROOM MOST OF THE SHIFT, PATIENT TENDS TO BE ISOLATIVE. PRN SEROQUEL GIVEN FOR SLEEP. PATIENT COMPLIANT WITH MEDICATION AND TREATMENT PLAN. SAFETY MEASURES IN PLACE. CALL LIGHT IN REACH. WILL CONTINUE TO MONITOR. LAST COWS 1.
--- NOTE | 2017-04-19 07:55 | NUR ---
START OF SHIFT NOTE Received report from night nurse, 22 year old male admitted for Opioid withdrawal. Patient completed his 5 days Subutex tolerated well and pt scheduled for discharge today. Per endorsement pt was given PRN Seroquel effective per night nurse, last COWS was 1, slept for 7 hours. Patient received awake, alert and oriented x4, educated regarding discharge and pt is motivated for being discharge. All safety measures in place. Will cont to monitor.
[2017-04-19 08:00] VITALS: BP 89/57
[2017-04-19] MEDS: GABAPENTIN 300 MG CAPSULE PO SCH ×2 (08:37→14:22)
[2017-04-19] MEDS: BACLOFEN 10 MG TABLET PO SCH (08:37)
[2017-04-19] MEDS: CLONIDINE HCL 0.1 MG TABLET PO SCH (08:38)
[2017-04-19 12:00] VITALS: BP 92/52
[2017-04-19 16:00] VITALS: BP 135/73
--- NOTE | 2017-04-19 18:36 | NUR ---
DISCHARGE NOTE Patient has been discharged from [facility] Patient is in Stable condition, VS WNL. Denies suicidal and homicidal ideations at this time. All documentation has been completed, paperwork signed and dated. Pt left with all of her belongings, prescriptions. Last COWS score was-1. Pt has been discharged from [facility] on 04/19/17 at 1836. has been Notified.
== END 2017-04-19 18:36 | disposition home or self-care (01) | DRG 895 ==
LOC: SRC 12:16
PROVIDERS: ADMIT Internal Medicine; ATTEND Internal Medicine
PROC: HZ2ZZZZ Detoxification Services for Substance Abuse Treatment (ICD-10-PCS; principal; 2017-04-13)
PROC: HZ31ZZZ Individual Counseling for Substance Abuse Treatment, Behavioral (ICD-10-PCS; 2017-04-16)
PROC: HZ41ZZZ Group Counseling for Substance Abuse Treatment, Behavioral (ICD-10-PCS; 2017-04-16)
DX: F11.23 Opioid dependence with withdrawal (principal); F39 Unspecified mood [affective] disorder; B19.20 Unspecified viral hepatitis C without hepatic coma; F17.210 Nicotine dependence, cigarettes, uncomplicated; F41.9 Anxiety disorder, unspecified; F90.9 Attention-deficit hyperactivity disorder, unspecified type; G47.50 Parasomnia, unspecified; Z81.1 Family history of alcohol abuse and dependence; Z82.49 Family history of ischemic heart disease and other diseases of the circulatory system; Z83.518 Family history of other specified eye disorder; Z59.1 Inadequate housing; Z91.89 Other specified personal risk factors, not elsewhere classified; F14.10 Cocaine abuse, uncomplicated; F15.10 Other stimulant abuse, uncomplicated; F10.10 Alcohol abuse, uncomplicated; Y90.0 Blood alcohol level of less than 20 mg/100 ml; R73.9 Hyperglycemia, unspecified; Z79.899 Other long term (current) drug therapy; Z59.0 Homelessness
CPT/HCPCS: 36415; 70030-TC; 80307; 80361; 83735; 85025; 86580; 86592; 86705; 86803; 87340; 87806; A4663; G0480; Q0162

== ENCOUNTER 2017-11-15 18:45 | Inpatient (IN) | payer BC, OTHER ==
[~2017-11-15] VITALS: Ht 175.3 cm; Wt 54.4 kg
--- NOTE | 2017-11-15 23:00 | NUR ---
PRE-ADMISSION NOTE Pt is a 22 year old male seen at intake, alert oriented x4 and is ambulatory with steady gait. Pt is noted to be anxious, restlessness, and withdrawn. Pt is withdrawing from opiates and is intoxicated from heroin 0.25 grams IV last used at 1845. Pt reports he last used Xanax PO 2 mg a month ago and uses it intermittent. Patient past medical history of bronchial cleft excision surgery in 2016 and deviated septum repair in 2012. Initial vital signs are as follow: BP 113/64, HR 91, RR 20, and O2 sat 100% on room air, patient denies pain. Will continue plan of care upon arrival on unit.
--- NOTE | 2017-11-15 23:30 | NUR ---
Admission Note Patient is 22 [id number] admitted 11/15/2017 for Heroin withdrawal, arrived on unit 2317. Patient also has used Xanax for 7 years and uses it intermittent; last used in october 2017 for 2 mg PO. Patient is currently intoxicated. Patient admitted using Heroin 0.25 gram IV at 1845. Patient presents with anxiety, restlessness and tremors. Patient appears disheveled, avoids eye contact, withdrawn and depressed. When asked for reason for seeking treatment patient verbalized "I dont know what I'm going to do but I want to get sober." Patient states that his motivator to get sober is: "I want to finish school; I want to study history and eventually go to law school." Patient is alert oriented x4, ambulatory with a steady gait. Initial COWS assessment is 13. Patient has no known allergies with a regular diet and full code. Patient states that when he experiences withdrawal he feels: anxious, headache, nausea and vomiting, tremors and agitation. Patient denies having seizure history. Patient admits having one overdose in 2014 and he did receive medical treatment; he does not recall the month. Patient denies withdrawal induced delirium; withdrawal induced cardiac complications and blackouts. Patient has a history of bronchial cleft excision surgery in 2016 and deviated septum repair in 2012. Patient admits having legal consequences related to Heroin addiction. Patient stated I made stupid decisions. Substance Abuse History: 1) Heroin IV 1 gram daily, for the past 6 months. Patient reported he started using heroin at age 17. Patient states he last used heroin on 11/15/2017 at 1845, 0.25 gram IV. 2) Xanax PO 2 mg intermittent, for 6-7 months. Patient reports he started using Xanax at age [age] years old. Patient states last used in October 2017 2mg IV intermittent. Patient states he is back in treatment at [facility] because I want to stay committed and I am getting older and I want to graduate from College. When asked how this admission would be different, patient answered: I dont know everyone asks me the same question, I just dont know. Patient stated he does not have any motivators to quit this life style, but he does want to get sober. Patient reports attending treatment centers as follow: [facility] April 2017, [facility] January 2017 and some place in [place] in 2013 and does not recall the month. Patient reports being sober for 2 weeks in April 2017 after discharge from [facility], and has struggled with sobriety for many years. He said some triggers that push him to relapse are financial stressors, friend that and girlfriend. Patient stated that girlfriend also uses drugs and negatively influence his sobriety. His support system consists of his family and girlfriend. Patient reported taking Seroquel 100 mg PO at bedtime from previous admissions to help sleep. Patient denies having a primary care physician and psychiatrist. Patient is 59 and weights 120 lb per standing scale. Patients skin is intact, dry, warm, and capillary refill is <3 seconds. Patient was noted upon admissions with a left buttocks open abscess and pictures were taken. Abscess characteristics consist of: erythema, serosanguineous drainage and along with multiple scattered bruising with nodules due to patient injecting Heroin. Patient said he constantly uses the buttocks to inject himself with heroin. PERRLA is present, pupils 2 mm bilaterally. Lung sounds are clear bilaterally, abdomen is soft and non tender, bowel sounds are present in all four quadrants, patient admits of having a bowel movement on 11/15/2017. Initial vital signs are as follow: BP 113/64, HR 91, RR 20, and O2 sat 100% on room air, patient denies pain. Respirations are even and unlabored. Patient denies any family history of substance abuse. Patient has been oriented to unit, teaching was provided and policies were reviewed. Patient did not provide urine upon admissions and blood work was obtained at intake assessment office. Patient was unable to void but verbalized understanding to call when feeling urge to void. Patient is on fall precautions and safety measures in place, side rails up x2, bed locked to low position, call light within reach. No pending medications are ordered, pending urinalysis. Will continue to monitor.
[2017-11-16] VITALS: BP 116/76
[2017-11-16] MEDS ORDERED: IBUPROFEN 400 MG TABLET PO PRN
[2017-11-16] MEDS ORDERED: LOPERAMIDE HCL 2 MG CAPSULE PO PRN ×2
[2017-11-16] MEDS ORDERED: MAG HYDROX/AL HYDROX/SIMETH 30 ML LIQUID UDC PO PRN
[2017-11-16] MEDS ORDERED: MIRALAX 17 GM POWD.PACK PO PRN
[2017-11-16] MEDS ORDERED: ONDANSETRON ODT 4 MG TAB.RAPDIS SL PRN
[2017-11-16] MEDS ORDERED: MAGNESIUM HYDROXIDE 30 ML LIQUID UDC PO PRN
[2017-11-16] MEDS ORDERED: ACETAMINOPHEN 325 MG TABLET PO PRN
[2017-11-16] MEDS ORDERED: diphenhydrAMINE 50 MG CAPSULE PO PRN
[2017-11-16] MEDS ORDERED: DICYCLOMINE HCL 20 MG TABLET PO PRN
[2017-11-16] MEDS ORDERED: CLONIDINE HCL 0.1 MG TABLET PO PRN
[2017-11-16] MEDS ORDERED: BUPRENORPHINE HCL 2 MG TAB.SUBL SL PRN
[2017-11-16] MEDS ORDERED: ONDANSETRON 4 MG/2 ML VIAL IM PRN
[2017-11-16 00:07] LABS: ETHANOL < 3 MG/DL (0-0)
[2017-11-16 00:10] LABS: BASOPHILS # (AUTO) 0.1 K/uL (0.0-8.0); BASOPHILS % (AUTO) 0.7 % (0.0-2.0); EOSINOPHILS % (AUTO) 0.3 % (0.0-7.0); HEMATOCRIT 38.1 % (36.7-47.1); HEMOGLOBIN 12.8 g/dL (12.5-16.3); LYMPHOCYTES # (AUTO) 1.6 K/uL (20.0-40.0); LYMPHOCYTES % (AUTO) 13.3 % (20.5-51.5); MEAN CORPUSCULAR HEMOGLOBIN 27.4 uug (23.8-33.4); MEAN CORPUSCULAR HGB CONC 34 g/dL (32.5-36.3); MEAN CORPUSCULAR VOLUME 81.5 fL (73.0-96.2); MONOCYTES # (AUTO) 0.6 K/uL (2.0-10.0); MONOCYTES % (AUTO) 5.1 % (0.0-11.0); NEUTROPHILS % (AUTO) 80.6 % (38.5-71.5); PLATELET COUNT (AUTO) 389 K/uL (152-348); RED BLOOD CELL COUNT(AUTO) 4.68 MIL/uL (4.06-5.63); WHITE BLOOD COUNT (AUTO) 12.4 K/uL (3.6-10.2)
[2017-11-16 01:35] LABS: *AMPHETAMINE, URINE NEGATIVE (NEGATIVE); *BARBITURATE, URINE NEGATIVE (NEGATIVE); *CANNABINOID, URINE NEGATIVE (NEGATIVE); *COCCAINE, URINE NEGATIVE (NEGATIVE); *OPIATE, URINE POSITIVE (NEGATIVE); *PHENCYCLIDINE SCREEN,URINE NEGATIVE (NEGATIVE)
[2017-11-16 02:11] LABS: ALANINE AMINOTRANSFERASE 19 U/L (16-63); ALKALINE PHOSPHATASE 98 U/L (50-136); AMYLASE 32 U/L (25-115); ASPARTATE AMINOTRANSFERASE 20 U/L (15-37); BILIRUBIN,TOTAL 0.4 mg/dL (0.2-1.0); CARBON DIOXIDE 25 mmol/L (21-32); CHLORIDE 100 mmol/L (98-107); CREATININE 0.8 mg/dL (0.6-1.3); GLUCOSE 85 mg/dL (74-106); LIPASE 73 U/L (73-393); MAGNESIUM 2.1 mg/dL (1.8-2.4); POTASSIUM 3.7 mmol/L (3.5-5.1); TOTAL PROTEIN, SERUM 9.5 g/dL (6.4-8.2); UREA NITROGEN, BLOOD 10 mg/dL (7-18)
[2017-11-16] MEDS ORDERED: QUET100T PO (02:42)
[2017-11-16 02:44] LABS: THYROID STIMULATING HORMONE 3.883 mIU/mL (0.358-3.740)
[2017-11-16 04:30] VITALS: BP 114/79
--- NOTE | 2017-11-16 04:30 | NUR ---
COWS Deferred Patient noted to be in bed resting with eyes closed, breathing even and unlabored. Per protocol COWS is to be assessed while awake. Safety measures in place, bed lock in low position, side rails up x2, and call light within reach. Will continue to monitor.
--- NOTE | 2017-11-16 07:30 | NUR ---
End of shift Pt is a 22 year old male admitted on 11/15/2017 at 2317 for heroin withdrawal. Patient has a history of Xanax PO 2 mg use and last time used was in October 2017. Patient has no ordered tapered at this time, PRN Subutex ordered. No PRN medications were administered during this shit. Patient was noted to be intoxicated and was restless and anxious upon admission. Patient slept for 7 hours, total intake was 670 ml. Voided x3 and had no bowel movements. Patient last COWS was 13. Despite patients COWS score of 13 patient denies need for medication. Patient states I dont need it right now. Safety measures in place, bed lock in low position, side rails up x2, and call light within reach. Will endorse to day shift.
[2017-11-16 08:00] VITALS: BP 91/60
--- NOTE | 2017-11-16 08:10 | NUR ---
START OF SHIFT: Received Pt A/O X 4. He presents disheveled and odorous with greasy hair. His pupils are dilated. Skin is moist. Piloerection to bilateral arms. He reports chills,sweats,watery eyes, body aches,anxiety.agitation and restlessness. Pt is fidgety. COWS 22. PRN Subutex 4 mg SL given to manage s/s of w/d. PPD administered to LFA. Encouraged increased fluids to assist in facilitating detox process. Will monitor effectiveness of PRN medication.
--- NOTE | 2017-11-16 08:40 | NUR ---
Subutex PRN mildly effective. COWS 17. He continues to be fidgety and reports anxiety ,irritability and restlessness. made aware.
[2017-11-16] MEDS ORDERED: TUBERCULIN,PURIF.PROT.DERIV. 5 TU/0.1 ML TEST ID ONE (09:00)
[2017-11-16] MEDS: LORAZEPAM 1 MG TABLET PO PRN ×2 (10:26→20:20)
[2017-11-16] MEDS ORDERED: QUETIAPINE FUMARATE 100 MG TABLET PO PRN (10:30)
[2017-11-16] MEDS ORDERED: 5 DAY TAPER BUPRENORPHINE -SERENITY PROTOCOL SL PRN (10:30)
--- NOTE | 2017-11-16 10:30 | NUR ---
New order for Ativan 2mg PO PRN per MD. New order for Seroquel 25 mg PO PRN per Psych. MD. Administered PRN Ativan as ordered for severe agitation and anxiety.Will monitor effectiveness of PRN.
--- NOTE | 2017-11-16 11:30 | NUR ---
Pt states the PRN Ativan helped him feel better. He is less agitated and anxious. Will continue to monitor s/s of w/d.
[2017-11-16 12:00] VITALS: BP 105/69
--- NOTE | 2017-11-16 12:15 | NUR ---
COWS at noon 16. Pt reports anxiety,chills,sweats,anxiety and restlessness.Will continue to monitor s/s of w/d.
[2017-11-16] MEDS: BUPRENORPHINE HCL 2 MG TAB.SUBL SL SCH ×3 (12:39→20:20)
--- NOTE | 2017-11-16 15:18 | NUR ---
Therapist prompted client to attend group therapy.
[2017-11-16 16:00] VITALS: BP 114/70
[2017-11-16] MEDS: QUETIAPINE FUMARATE 25 MG TABLET PO PRN (17:35)
[2017-11-16] MEDS: METHOCARBAMOL 750 MG TABLET PO PRN (17:35)
--- NOTE | 2017-11-16 17:36 | NUR ---
PRN Robaxin PO and PRN Seroquel given. He c/o muscle aches and agitation. Will monitor effectiveness of PRN meds.
--- NOTE | 2017-11-16 18:34 | NUR ---
Pt states PRN Seroquel and PRN Robaxin were effective in reducing muscle aches and agitation. Will continue to monitor.
--- NOTE | 2017-11-16 18:44 | NUR ---
END OF SHIFT: Pt started on Subutex taper to manage s/s of w/d which include chills,sweats,anxiety,body aches,anxiety and agitation. Last COWS 9. He was given PRN Ativan in Am to manage anxiety and agitation and was effective. Later in shift he received PRN Robaxin for body aches and PRN Seroquel for agitation. Both were effective. He was compliant with increased fluids and attended some groups. PPD planted to [facility]. Will pass shift report to oncoming night nurse.
--- NOTE | 2017-11-16 19:45 | NUR ---
Start of Shift Note Received a 22 y/o male px, admitted for medically supervised withdrawal from Heroin and Xanax. Px is placed on 5 day Subutex taper, started today, 11/16/2017. Last reported COWS 11 by AM shift nurse. During the rounds at 1945, px is awake on bed in fowlers position. He is disheveled, and odorous. Unfinished drinks and snacks noted on top of the bed side table. Px looks anxious. Px states that his anxiety is 7/10, has sweats at night, and chills. Mild tremors noted on both hands. He also complains of 3/10 bilateral knee pain but doesnt need pain reliever for it. Bed on lowest position, bed rails up 2x and call light within reach. Well continue to monitor
[2017-11-16 20:00] VITALS: BP 100/70
--- NOTE | 2017-11-16 20:00 | NUR ---
COWS 11 Upon assessment, Px appears anxious. Px states that his anxiety is 7/10, has sweats at night, and chills. Mild tremors noted on both hands. He also complains of 3/10 bilateral knee pain. will continue to monitor.
--- NOTE | 2017-11-16 20:20 | NUR ---
PRN Ativan Px received Ativan 2 mg PO for agitation and restlessness. to reassess after an hour
--- NOTE | 2017-11-16 20:42 | NUR ---
PRN Seroquel Px was given Seroquel 100 mg PO for insomnia. will continue to monitor
--- NOTE | 2017-11-16 20:50 | NUR ---
Subutex reassessment CIWA 11. Px still appears anxious. Px states that his anxiety is still 7/10, has sweats at night, and chills. Mild tremors noted on both hands. He also complains of 3/10 bilateral knee pain.
--- NOTE | 2017-11-16 21:20 | NUR ---
PRN Ativan reassessment Px still appears anxious and looks restless.
--- NOTE | 2017-11-16 21:42 | NUR ---
PRN Seroquel reassessment Px is still awake at this moment. He has hard time getting sleepy
[2017-11-17] VITALS: BP 103/69
--- NOTE | 2017-11-17 | NUR ---
COWS 11 Upon assessment, px is awake on bed eating some snacks. He still appears anxious. Px states that his anxiety is still at 7/10, has sweats at night, and chills. Mild tremors noted on both hands. He also complains of 3/10 bilateral knee pain. will continue to monitor.
[2017-11-17] MEDS: LORAZEPAM 1 MG TABLET PO PRN (02:13)
--- NOTE | 2017-11-17 02:13 | NUR ---
PRN Ativan Px appears anxious and still agitated. He has difficulty sleeping. Px was given Ativan 2 mg PO. To reassess after an hour
[2017-11-17 04:00] VITALS: BP 98/60
--- NOTE | 2017-11-17 04:00 | NUR ---
COWS deferred COWS deferred due to the px is asleep, to assess if the px is awake per doctor's order
--- NOTE | 2017-11-17 07:05 | NUR ---
End of Shift Note During the shift at 2019, px received Ativan 2 mg for agitation. It was not effective. At 2041, He received Seroquel 100 mg PO for insomnia. It was not effective. At 212, px received Ativan 2 mg PO for agitation. Then px slept. He slept for 4 hours. Oral intake of 1 L, voided 2x, No BM. Last COWS 11. Bed on lowest position, bed rails up 2x and call light within reach. Well continue to monitor.
[2017-11-17 08:06] LABS: HEPATITIS B SURFACE AG Negative (Negative)
[2017-11-17 08:15] VITALS: BP 106/72
--- NOTE | 2017-11-17 08:20 | NUR ---
START OF SHIFT: Received Pt A/O X 4. He presents disheveled. His pupils are dilated. He reports chills,sweats,body aches,anxiety and agitation. Pt is fidgety. COWS 11. PRN Seroquel 25 mg po and Robaxin given to manage s/s of w/d. Encouraged increased fluids to assist in facilitating detox process. Encouraged group attendance to improve coping skills and prevent relapse. Will monitor effectiveness of PRN medication and continue to monitor and manage s/s of w/d.
[2017-11-17] MEDS: QUETIAPINE FUMARATE 25 MG TABLET PO PRN ×2 (08:41→21:33)
[2017-11-17] MEDS: METHOCARBAMOL 750 MG TABLET PO PRN (08:41)
[2017-11-17] MEDS: BUPRENORPHINE HCL 2 MG TAB.SUBL SL SCH ×3 (08:41→21:33)
--- NOTE | 2017-11-17 09:25 | NUR ---
Pt states th Motrin and Seroquel was effective in reducing agitation and body aches. Will continue to monitor and offer support.
[2017-11-17 12:00] VITALS: BP 102/62
--- NOTE | 2017-11-17 12:00 | NUR ---
WOUND CARE CONSULT: PT PRESENTS WITH LEFT BUTTOCK ABSCESS WHICH IS INDURATED AND HAS MODERATE AMOUNT OF PURULENT ODOROUS DRAINAGE FROM SEVERAL TINY OPEN SITES. RECOMMEND SURGICAL CONSULT. PT IS AMBULATORY AND CONTINENT. DISCUSSED WOUND CARE/SKIN PROTECTION WITH NURSING STAFF. WILL SEE PRN. ZUNIGA IN AGREEMENT WITH PLAN OF CARE.
--- NOTE | 2017-11-17 12:15 | NUR ---
Noon COWS 12. He reports agitation,anxiety,restlessness and body aches.
[2017-11-17] MEDS: HYDROXYZINE PAMOATE 25 MG CAPSULE PO PRN (13:40)
[2017-11-17 16:00] VITALS: BP 98/68
--- NOTE | 2017-11-17 18:48 | NUR ---
END OF SHIFT: Pt continues on Subutex taper to manage s/s of w/d which include chills,sweats,anxiety,body aches,anxiety and agitation. Last COWS 12. He was given PRN Seroquel in Am to manage agitation and was effective. He was also given Robaxin PRN for muscle aches . Wound nurse assessed wound to L buttocks and changed dressing.Surgical Nurse Practitioner also assessed wound and Ct scan with contrast ordered and done. Consent signed. Surgery ordered to debride and wash wound in am tomorrow at 0900. He is to be NPO after midnight.Consent signed and placed in chart. He was compliant with increased fluids. Will pass shift report to oncoming night nurse.
[2017-11-17 20:00] VITALS: BP 96/67
--- NOTE | 2017-11-17 20:00 | NUR ---
Start of Shift Note Received a 22 y/o male px, admitted for medically supervised withdrawal from Heroin and Xanax. Px is placed on 5 day Subutex taper, started 11/16/2017. Last reported COWS 12 by AM shift nurse. During the rounds at 2000, px is awake on bed in right side lying position. He is disheveled, and odorous. Unfinished drinks and snacks noted on top of the bed side table. Px looks anxious. Px states that his anxiety is 8/10, has sweats at night, and chills. Mild tremors noted on both hands. He is scheduled for surgical debridement tomorrow, 11/18/2017. NPO at midnight. Px signed the general anesthesia form. Bed on lowest position, bed rails up 2x and call light within reach. Well continue to monitor
--- NOTE | 2017-11-17 20:00 | NUR ---
COWS 12 Upon assessment, px is awake on bed in right side lying position Px states that his anxiety is 8/10, has sweats at night, and chills. Mild tremors noted on both hands. WI= 88. will continue to monitor.
--- NOTE | 2017-11-17 21:33 | NUR ---
PRN Seroquel Px received 25 mg PO for insomnia. will continue to monitor
--- NOTE | 2017-11-17 22:33 | NUR ---
PRN Seroquel reassessment Px is still awake at this moment lying on bed but he stated that he is ready to sleep
[2017-11-18] VITALS: BP 101/69
--- NOTE | 2017-11-18 | NUR ---
COWS deferred COWS deferred due to the px is asleep, to assess if the px is awake per doctor's order
[2017-11-18 04:00] VITALS: BP 108/69
--- NOTE | 2017-11-18 04:00 | NUR ---
COWS deferred COWS deferred due to the px is asleep, to assess if the px is awake per doctor's order
--- NOTE | 2017-11-18 07:05 | NUR ---
End of Shift Note Px is scheduled for surgical debridement today, 11/18/[address] at [address] Gamboa. Consent signed. During the shift at 2133, px received Seroquel 100 mg PO for insomnia. It was effective. Px slept for 8 hours. Oral intake of 500 ml, voided 2x, No BM. Last COWS 12. Bed on lowest position, bed rails up 2x and call light within reach. Well continue to monitor.
--- NOTE | 2017-11-18 07:30 | NUR ---
START OF SHIFT Pt 22 y/o male admitted for opiate withdrawal. Pt received in room awake watching television. Pt alert and oriented to name, place, and time. Perrla. Skin warm and moist to touch. Respirations even unlabored. Appears disheveled and unkempt. Clothes scattered throughout the room. Encouraged to maintain hygiene. Anxious and restless. Easily agitated. Pressured speech noted. Bilateral hand tremors noted. It was reported that pt slept for8 hours last night. Last cows=12 @ 2000. Pt is on a 5 day subutex taper and is on day 3. Bed on lowest position with side rails x2 up for safety. Call light within reach.
[2017-11-18 08:00] VITALS: BP 115/74
--- NOTE | 2017-11-18 08:00 | NUR ---
COWS ASSESSMENT cows=14. Easily irritable and agitated. Restless on bed, not able to lay still. Complaints of pain. Pressured speech noted. Bilateral hand tremors. Complaints of intermittent chills and sweats. Generalized body aches and discomfort.
--- NOTE | 2017-11-18 08:40 | NUR ---
TRANSFER Pt transferred to OR for scheduled procedure by OR staff.
[2017-11-18] MEDS ORDERED: BUPRENORPHINE HCL 2 MG TAB.SUBL SL SCH (09:00)
--- NOTE | 2017-11-18 10:46 | NUR ---
POSTOP Pt back on unit from post op of left buttock I&D with extensive washout. VS wnl: pi=[id number] p=118 t=98.0 r=16.
[2017-11-18] MEDS ORDERED: BUPRENORPHINE HCL 2 MG TAB.SUBL SL ONE (11:05)
[2017-11-18 12:00] VITALS: BP 99/78
--- NOTE | 2017-11-18 12:00 | NUR ---
COWS ASSESSMENT cows=12. Anxious and restless. Pressured speech noted. Easily irritable and agitated. Bilateral hand tremors noted. Complaints of generalized body aches and pain, intermittent perspiration and chills, and discomfort.
--- NOTE | 2017-11-18 13:54 | NUR ---
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 MD ordered vanco O: BUN/SCR 10/0.8( USED 0.8 FOR CALC); WBC 12.4, TEMP 97.9; DOSING WT 120LBS A/P: will dose Vanco as 1000 mg q10h, estimated peak of 40 and trough of 17 will order trough prior to 4th dose and adjust the dose if needed.
--- NOTE | 2017-11-18 13:58 | NUR ---
Therapist prompted client to attend group therapy.
[2017-11-18] MEDS: VANCOMYCIN IV 1 G in PREMIXED 0 EACH IV SCH (14:29)
[2017-11-18] MEDS: BUPRENORPHINE HCL 2 MG TAB.SUBL SL SCH ×2 (14:30→20:32)
[2017-11-18 16:00] VITALS: BP 106/76
--- NOTE | 2017-11-18 16:00 | NUR ---
COWS ASSESSMENT cows=12. Bilateral hand tremors. Anxious and restless. Bilateral hand tremors noted. Pressured speech. Easily irritable and agitated. Complaints of generalized discomfort and body aches. Intermittent perspiration and chills.
--- NOTE | 2017-11-18 18:33 | NUR ---
END OF SHIFT Pt 22 y/o male admitted for opiate withdrawal. Pt alert and oriented to name, place, and time. Perrla. Skin warm and moist to touch. Respirations even and unlabored. Appears disheveled and unkempt. Hair uncombed. Clothes scattered throughout the room. Encouraged to maintain hygiene. Bilateral hand tremors. Anxious and restless. Bilateral hand tremors noted. Pressured speech. Intermittent perspiration and chills. Easily irritable and agitated. Complaints of generalized discomfort and body aches. Isolative with minimal peer interaction Pt attended group activity. Medication compliant. Last cows=12 Pt is on a 5 day subutex taper and is on day 3. Pt had procedure done to left buttocks - I&D with extensive washout. Pt also started on IV vancomycin today. Bed on lowest position with side rails x2 up for safety. Call light within reach.
--- NOTE | 2017-11-18 19:30 | NUR ---
Start of shift Patient is a 22 years old male admitted on 11/15/2017 for benzo and opiate withdrawal. Patient is on a 5 day Subutex taper started on 11/16/2017. Patient is currently being monitor for S/P I&D to left buttocks and patient tolerated well without complications. Patient continues on IV Vancomycin Q10H. IV site noted on right upper arm 20 gauge noted intact with no infiltration or signs of infection. Patients last COWS is 12. Patient is presenting with some anxiety, agitation, tremors, mild sweat, and stuffy nose. Patient is on Fall and Seizure precautions. Upon rounds patient was noted in room. Patient participates in group. Reviewed 2100 medications and patient asked for Seroquel. Respirations are even and unlabored. Safety measure in place, bed locked in low position, side rails up x2, and call light within reach. Will continue to monitor.
[2017-11-18 20:00] VITALS: BP 116/79
[2017-11-18] MEDS: QUETIAPINE FUMARATE 100 MG TABLET PO PRN (20:30)
--- NOTE | 2017-11-18 20:30 | NUR ---
PRN Seroquel 150 mg Patient verbalized inability to sleep and requested for Seroquel. Administered Seroquel and patient tolerated well. Respirations are even and unlabored. Safety measure in place. Will continue to monitor.
--- NOTE | 2017-11-18 21:30 | NUR ---
PRN Seroquel 150 mg reassessment Patient is noted in bed with eyes closed. Respirations are even and unlabored. Medication was noted to be effective. Safety measures in place will continue to monitor.
[2017-11-19] VITALS (7 sets, daily range): BP systolic 90–124; BP diastolic 47–92
[2017-11-19] MEDS: VANCOMYCIN IV 1 G in PREMIXED 0 EACH IV SCH ×3 (00:10→20:38)
--- NOTE | 2017-11-19 00:19 | NUR ---
COWS Assessment Patient was presenting with withdrawal symptoms: anxiety, agitation, tremors, stuffy nose, restlessness, sweats and chills. Patient COWS is 14. Respirations are even and unlabored. Safety measures in place. Will continue to monitor.
--- NOTE | 2017-11-19 00:20 | NUR ---
PRN Robaxin 750mg Patient was noted with withdrawal symptoms: body aches, anxiety, restless and agitation. Patients CIWA =14. Patient vital sign: T 98.0, BP 98/57, P 78, RR 20, Pain 0/10. Respirations are even and unlabored. Will continue to monitor patient.
[2017-11-19] MEDS: METHOCARBAMOL 750 MG TABLET PO PRN ×2 (00:31→08:28)
--- NOTE | 2017-11-19 01:20 | NUR ---
PRN Robaxin 750mg Reassessment Patient was noted in bed with eyes close and tv and lights off. Medication was tolerated well. Respirations are even and unlabored. Will continue to monitor patient.
--- NOTE | 2017-11-19 04:00 | NUR ---
COWS ASSESSMENT IS DEFERRED Patient noted to be in bed resting with eyes closed. Respirations are even and unlabored. Per protocol COWS is to be assessed while awake. Safety measures in place, bed lock in low position, side rails up x2, call light within reach. Will continue to monitor.
--- NOTE | 2017-11-19 07:19 | NUR ---
End of shift Patient is a 22 years old male admitted on 11/15/2017 for benzo and opiate withdrawal. Patient is on a 5 day Subutex taper started on 11/16/2017. Patient is currently being monitor for S/P I&D to left buttocks and patient tolerated well without complications. Patient continues on IV Vancomycin Q10H. IV site noted on right upper arm 20 gauge noted intact with no infiltration or signs of infection. Patients last COWS is 14. Medication was noted to be effective. Patient received PRN Seroquel and Robaxin. Patient tolerated medication well without any adverse reactions. Patient slept for 8 hours. Patient total intake was 710 ml and voided 2 and had no bowel movements. Patient is on FALL precautions. Respirations are even and unlabored. Safety measures in place, bed locked in low position, side rails up x2, and call light within reach. Will endorse to day shift.
--- NOTE | 2017-11-19 07:30 | NUR ---
START OF SHIFT Pt 22 y/o male admitted for opiate withdrawal. Pt received in room on bed. Pt alert and oriented to name, place, and time. Perrla. Skin warm and moist to touch. Respirations even and unlabored. Appears disheveled with hair uncombed. Clothes and empty drink bottles scattered throughout the room. Encouraged to maintain hygiene. Anxious and restless. Pressured speech noted. Bilateral hand tremors noted. Complaints of generalized discomfort and body aches. Peripheral IV on right upper arm intact and in place, and patent, and is saline locked, with no redness noted. It was reported that pt slept for 8 hours last night.Last cows=14 @2000. Pt is on a 5 day subutex taper and is on day 4. Bed on lowest position with side rails x2 up for safety. Call light within reach.
--- NOTE | 2017-11-19 08:00 | NUR ---
COWS ASSESSMENT cows=14. Anxious and restless. Bilateral hand tremors noted. Pressured speech noted. Appears worried. Not able to lay still in bed. Intermittent perspiration and chills. Complaints of generalized discomfort and body aches.
[2017-11-19] MEDS: BUPRENORPHINE HCL 2 MG TAB.SUBL SL SCH ×3 (08:29→20:38)
--- NOTE | 2017-11-19 08:36 | NUR ---
PRN ROBAXIN Pt with complaints of body aches 06/15. Robaxin po prn per MD order given and tolerated well.
--- NOTE | 2017-11-19 09:36 | NUR ---
PRN ADAM PEREZ States body aches 04/17.
[2017-11-19] MEDS: SODIUM HYPOCHLORITE 0.125% 473 ML BOTTLE TP SCH (10:15)
--- NOTE | 2017-11-19 10:52 | NUR ---
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 ordered vanco O: BUN/SCR 10/0.8 (11/18); WBC 12.4 (11/18), TEMP 98; DOSING WT 120LBS A/P: will continue Vanco as 1000 mg q10h, estimated peak of 40 and trough of 17. Trough due today at 1930. Will check trough and adjust as needed. Will follow Addendum: 11/19/17 at 2014 by DALE ROQUE TROUGH 10.4. WILL CHANGE INTERVAL FROM Q10H TO Q8H ESTIMATED TROUGH 15
[2017-11-19] MEDS ORDERED: KETOROLAC TROMETHAMINE 30 MG INJ IVP PRN (11:30)
--- NOTE | 2017-11-19 11:30 | NUR ---
BEDSIDE TREATMENT/ PROCEDURE Dressing change to left buttock s/p I&D done by Mary Thompson POND SAWYER at pt's bedside. I&D sites to left buttock with no redness surround the incision site. 2 incision sites on left buttock. Inside incision site about tunnels. Site was packed with iodoform. Moderate amount of serosanguineous drainage with no odor noted. Site cleansed with NS and dakins, and packed with iodoform, covered with 4x4 gauze and abd pad. Pt observed grabbing the blanket, slamming clenched fist on bed, breathing heavily, and grunting during wound treatment. Yelling episodes as well. Pt yelling," I don't every want to go through this again!". Pt also on IV atb with no ASE noted.
--- NOTE | 2017-11-19 12:00 | NUR ---
COWS ASSESSMENT cows=12. Anxious and restless. Fidgety. Complaints of pain , aches and generalized discomfort. Intermittent perspiration and chills. Perspiration on forehead noted. Easily agitated/ irritable. Pressured speech during responses. Palms sweaty. Bilateral hand tremors noted.
[2017-11-19] MEDS: HYDROXYZINE PAMOATE 25 MG CAPSULE PO PRN (14:35)
--- NOTE | 2017-11-19 14:40 | NUR ---
PRN VISTARIL States feels anxious. vistaril po prn per MD order given and tolerated well.
--- NOTE | 2017-11-19 15:40 | NUR ---
PRN VISTARIL EVAL Pt states medication was effective.
--- NOTE | 2017-11-19 16:00 | NUR ---
COWS ASSESSMENT cows=11. Bilateral hand tremors noted. Easily irritable/ agitated. Anxious and restless. Pressured speech. Pacing. Intermittent perspiration and chills. Complaints of generalized discomfort and body aches.
--- NOTE | 2017-11-19 17:00 | NUR ---
ID CONSULT Rosa BORDER PATROL OFFICER came to assess pt. No new orders.
--- NOTE | 2017-11-19 18:47 | NUR ---
END OF SHIFT Pt 22 y/o male admitted for opiate withdrawal. Pt alert and oriented to name, place, and time. Perrla. Skin warm and moist to touch. Respirations even and unlabored. Appears disheveled with hair uncombed. Clothes scattered throughout the room. Encouraged to maintain hygiene. Anxious and restless. Fidgety. Pacing. Pressured speech noted. Bilateral hand tremors noted. Complaints of generalized body aches and discomfort. Peripheral IV on right upper arm intact and in place, and patent, and is saline locked, with no redness noted. Pt receiving IV vancomycin therapy for staph - dosing per pharmacy. Mostly observed in recreation room today. Medication compliant. Last cows=12 @1600. Pt is on a 5 day subutex taper and is on day 4. Bed on lowest position with side rails x2 up for safety. Call light within reach.
--- NOTE | 2017-11-19 19:53 | NUR ---
START OF SHIFT NOTE Rcvd report from outgoing nurse. Pt is a 22 y/o male A/O to person, place, time, and purpose. Pt was admitted for medically supervised withdrawal from ETOH and Xanax. Pt is on day 4 of a 5 day Subutex taper. Pt has a left buttocks open abscess w/ drainage. Last drsg change was @ 1215. Pt is on a Vancomycin IV drip. Pt has been presenting w/ anxiety, agitation, flat affect, depressed and withdrawn mood, body aches, and sweats. PRN Robaxin given for body aches and pain, noted effective by outgoing nurse. Last COWS 12 @ 1600. Call light is within reach. Pt will continue to be monitored and needs met.
--- NOTE | 2017-11-19 20:10 | NUR ---
COWS ASSESSMENT COWS 12. . Pt has been presenting w/ anxiety, agitation, flat affect, depressed and withdrawn mood, body aches, and sweats. V/S: T:98.7, P:106, RR:16, SPO2:100, BP:117/66
--- NOTE | 2017-11-19 20:40 | NUR ---
IV ASSESSMENT Peripheral IV became dislodge and was leaking. Site inspected and showed no redness, swelling, or warmth. IV removed. Drsg applied.
--- NOTE | 2017-11-19 21:49 | NUR ---
IV INSERTED Peripheral IV 22g. left supraclavicular started by ED nurse. IV patent by flushing.
[2017-11-19] MEDS: QUETIAPINE FUMARATE 100 MG TABLET PO PRN (21:57)
--- NOTE | 2017-11-19 21:57 | NUR ---
PRN SEROQUEL ADMINISTRATION Seroquel 150mg given for sleep, Pt c/o insomnia. Will reassess pt in 1 hr.
--- NOTE | 2017-11-19 22:57 | NUR ---
PRN SEROQUEL REASSESSMENT Pt is in bed watching TV. Pt states they are waiting until Vanco infusion is completed and then will go for a smoke. Pt states they will fall asleep when they return. Will continue to monitor pt.
--- NOTE | 2017-11-20 00:11 | NUR ---
COWS ASSESSMENT COWS 9. Pt . Pt has been presenting w/ anxiety, agitation, flat affect, depressed and withdrawn mood, body aches, yawning, and nasal stuffiness.V/S: T:98.6, P:86, RR:16, SPO2:99, BP:113/69.
--- NOTE | 2017-11-20 04:05 | NUR ---
COWS DEFERRED. V/S REFUSED Pt is in bed w/ his eyes closed. Pt's respirations are unlabored and even.
[2017-11-20] MEDS: VANCOMYCIN IV 1 G in PREMIXED 0 EACH IV SCH (06:02)
--- NOTE | 2017-11-20 07:13 | NUR ---
END OF SHIFT NOTE Endorsed pt to oncoming nurse. Pt is a 22 y/o male A/O to person, place, time, and purpose. Pt was admitted for medically supervised withdrawal from ETOH and Xanax. Pt completed day 4 of a 5 day Subutex taper. Pt has a left buttocks open abscess w/ drainage. Last drsg change was @ 0600. Pt has a peripheral IV 22g in his left supra clavicular. Pt continues presenting w/ anxiety, agitation, flat affect, depressed and withdrawn mood, body aches, and sweats. Pt denies any S/I or H/I. PRN Seroquel was given for sleep, noted effective. Pts fluid intake was 1325ml and he slept for 6hrs. Last COWS 9 @ 0000. Call light is within reach.
--- NOTE | 2017-11-20 07:30 | NUR ---
START OF SHIFT pt 22 y/o male admitted opiate withdrawal. Pt received in room awake watching television. Pt alert and oriented to name, place, and time. Perrla. Skin warm and moist to touch. Respirations even and unlabored. Appears disheveled and unkempt. Hair uncombed. Malodorous. Clothes and empty drink bottles scattered throughout the room. Encouraged to maintain hygiene. IV on left shoulder 22g intact and in place with no redness noted and saline locked. Anxious and restless. Complaints of generalized body aches and discomfort. Bilateral hand tremors noted. It was reported that pt slept for 6 hours last night. Last cows=12 @0000. Pt is on a 5 day subutex taper and is on day 5. Bed on lowest position with side rails x2 up for safety. Call light within reach.
[2017-11-20 08:00] VITALS: BP 120/72
--- NOTE | 2017-11-20 08:00 | NUR ---
COWS ASSESSMENT cows=12. Bilateral hand tremors noted. Anxious and restless. Pressured speech. Fidgety. Pacing. Easily irritable. Piloerection noted on both arms. Generalized body aches and discomfort.
[2017-11-20] MEDS ORDERED: BUPRENORPHINE HCL 2 MG TAB.SUBL SL SCH (09:00)
[2017-11-20] MEDS: SODIUM HYPOCHLORITE 0.125% 473 ML BOTTLE TP SCH (09:16)
--- NOTE | 2017-11-20 09:25 | NUR ---
PRN TORADOL Complaints of left buttock pain sharp 10/10. Toradol ivp PRN per MD order given and tolerated well.
--- NOTE | 2017-11-20 10:25 | NUR ---
PRN TORADOL EVAL States pain 4/10.
[2017-11-20 12:00] VITALS: BP 121/79
--- NOTE | 2017-11-20 12:00 | NUR ---
COWS ASSESSMENT cows=12. Generalized discomfort and body aches. Bilateral hand tremors noted. Easily irritable and agitated. Anxious and restless. Pressured speech noted. Fidgety. Not able to lay still.
[2017-11-20] MEDS: CEFAZOLIN 1 G in PREMIXED 1 EACH IV SCH ×2 (14:13→21:27)
[2017-11-20 16:00] VITALS: BP 114/81
--- NOTE | 2017-11-20 16:00 | NUR ---
COWS ASSESSMENT cows=12. Bilateral hand tremors noted. Generalized discomfort and body aches. Irritable, frustrated, and agitated. Anxious and restless. Pressured speech noted. Fidgety. Pacing. Not able to lay still.
[2017-11-20 17:23] LABS: BASOPHILS % (AUTO) 0.4 % (0.0-2.0); EOSINOPHILS # (AUTO) 0.1 K/uL (0.0-0.7); EOSINOPHILS % (AUTO) 1.5 % (0.0-7.0); HEMATOCRIT 36.4 % (36.7-47.1); HEMOGLOBIN 12.1 g/dL (12.5-16.3); LYMPHOCYTES # (AUTO) 1.6 K/uL (20.0-40.0); MEAN CORPUSCULAR HEMOGLOBIN 27.4 uug (23.8-33.4); MEAN CORPUSCULAR HGB CONC 33 g/dL (32.5-36.3); MEAN CORPUSCULAR VOLUME 82.5 fL (73.0-96.2); MONOCYTES # (AUTO) 0.5 K/uL (2.0-10.0); MONOCYTES % (AUTO) 5.3 % (0.0-11.0); NEUTROPHILS # (AUTO) 6.9 K/uL (1.8-8.9); NEUTROPHILS % (AUTO) 74.8 % (38.5-71.5); PLATELET COUNT (AUTO) 341 K/uL (152-348); RED BLOOD CELL COUNT(AUTO) 4.42 MIL/uL (4.06-5.63); WHITE BLOOD COUNT (AUTO) 9.2 K/uL (3.6-10.2)
--- NOTE | 2017-11-20 18:55 | NUR ---
END OF SHIFT Pt 22 y/o male admitted for opiate withdrawal. Pt alert and oriented to name, place, and time. Perrla. Skin warm and moist to touch. Respirations even and unlabored. Appears disheveled. Clothes scattered and empty drink bottles scattered throughout the room. Encouraged to maintain hygiene. Anxious and restless. Pacing. Pressured speech noted. Bilateral hand tremors noted. Complaints of generalized body aches and discomfort. Peripheral IV on right upper arm intact and in place, and patent, and is saline locked, with no redness noted. Pt receiving IV ancef therapy for staph - dosing per pharmacy. Mostly observed in recreation room today. Medication compliant. Last cows=12 @1600. Pt is on a 5 day subutex taper and is on day 5. Bed on lowest position with side rails x2 up for safety. Call light within reach.
--- NOTE | 2017-11-20 19:54 | NUR ---
START OF SHIFT NOTE Rcvd report from outgoing nurse. Pt is a 22 y/o male A/O to person, place, time, and purpose. Pt was admitted for medically supervised withdrawal from Heroin and Xanax. Pt completed a 5 day Subutex taper. Pt has a 22g peripheral IV on his right anterior deltoid. Pt has a draining abscess on his left buttocks. Pt has been presenting w/ anxiety, flat affect, depressed mood, and sweats. PRN Toradol was given and noted effective by outgoing nurse. Last COWS 12 @ 1600. Call light is within reach. Pt will continue to be monitored and needs met.
[2017-11-20 20:07] VITALS: BP 116/67
--- NOTE | 2017-11-20 20:07 | NUR ---
COWS ASSESSMENT' COWS 11. Pt has been presenting w/ anxiety, flat affect, depressed mood, and sweats. V/S: T:98.4, P:79, RR:16, SPO2:98, BP:116/67.
[2017-11-20] MEDS: QUETIAPINE FUMARATE 100 MG TABLET PO PRN (21:27)
--- NOTE | 2017-11-20 21:27 | NUR ---
PRN SEROQUEL ADMINISTRATION Seroquel 150mg given for sleep. Pt c/o insomnia. Will reassess pt in 1 hr.
--- NOTE | 2017-11-20 22:27 | NUR ---
PRN SEROQUEL REASSESSMENT Pt is in bed w/ his eyes closed. Pt states "I was about to fall asleep". Medication noted effective. Will continue to monitor pt.
--- NOTE | 2017-11-20 23:59 | NUR ---
WOUND DRESSING CHANGE REFUSED Pt was in bed w/ his eyes closed. Pt's respirations are unlabored and even. Pt requested not to be woken up for drsg change if he was asleep.
--- NOTE | 2017-11-21 | NUR ---
COWS DEFERRED. V/S REFUSED Pt is in bed w/ his eyes closed. Pt's respirations are unlabored and even.
--- NOTE | 2017-11-21 04:00 | NUR ---
COWS DEFERRED. V/S REFUSED Pt is in be dw/ his eyes closed. Pt's respirations are unlabored and even.
[2017-11-21] MEDS: CEFAZOLIN 1 G in PREMIXED 1 EACH IV SCH ×2 (06:39→14:00)
--- NOTE | 2017-11-21 07:15 | NUR ---
END OF SHIFT NOTE Endorsed pt to oncoming nurse. Pt is a 22 y/o male A/O to person, place, time, and purpose. Pt was admitted for medically supervised withdrawal from Heroin and Xanax. Pt was on a 5 day Subutex taper. Pt has a 22g peripheral IV on his right anterior deltoid. Pt has a draining abscess on his left buttocks. Pt refused drsg change at 2359. Pt continues presenting w/ anxiety, flat affect, depressed mood, and sweats. PRN Seroquel was given for sleep, noted effective. Pt denies any S/I or H/I. Pts fluid intake was 355ml and he slept for 7hrs. Last COWS 11 @ 1999. Call light is within reach.
--- NOTE | 2017-11-21 07:30 | NUR ---
Start of shift Received report from nightclub manager. Upon start of shift Pt was in room asleep. Respirations even and unlabored. Pt slept 8 hours last night. Last COWS 11 at 2000. Pt completed his 5 day Subutex taper. Room is cluttered with wrappers, empty water bottles, clothes and used linens. Drinks and food spilled on floor, in his bed and on his tray. Tentative plans for discharge tomorrow. Pt has saline lock #22 gauge in his right anterior deltoid. Pt has an abscess on his left buttock. Dressing change scheduled Q12 hours. Fall precautions and all safety measures in place. Side rails up x2. Call light functioning and within reach. All needs attended and met. Will continue to assess for withdrawal symptoms.
[2017-11-21 08:00] VITALS: BP 90/56
--- NOTE | 2017-11-21 08:35 | NUR ---
COWS 8- Pt c/o anxiety, sweats/ chills, restless legs, fatigue, he has flat affect, and depressed mood.
[2017-11-21] MEDS: HYDROXYZINE PAMOATE 25 MG CAPSULE PO PRN (09:25)
[2017-11-21] MEDS: KETOROLAC TROMETHAMINE 30 MG INJ IM PRN (09:27)
--- NOTE | 2017-11-21 09:27 | NUR ---
PRN Vistaril 50 mg PO for moderate anxiety and Pt anxious about wound dressing change PRN Toradol 30 mg PO for left buttock pain and in preparation for wound dressing change. Pain #7-8/10
--- NOTE | 2017-11-21 09:30 | NUR ---
Saline lock in right anterior deltoid infiltrated. When attempted to flush with saline the site was very painful and saline seen under skin and leaking out of saline lock. Removed and dressed with 2x2 gauze. notified.
--- NOTE | 2017-11-21 10:30 | NUR ---
Lizet Cruztaril- Pt feels less anxious, but still nervous about wound dressing change. Toradol- Pt reports pain at left buttock wound site now #4-07/15.
[2017-11-21] MEDS: SODIUM HYPOCHLORITE 0.125% 473 ML BOTTLE TP SCH (10:32)
--- NOTE | 2017-11-21 10:45 | NUR ---
Dressing change- removed dressing and packing from left buttock wound. Upon inspection wound pink with sanguinous drainage. Upper buttock hard with yellow, green, blue bruises. Cleaned wound with Dakins solution. Inserted iodoform packing into wound. Applied 4x4 gauze then reinforced with ABD pad. Pt reported dressing change was painful #8/10, but when it was completed he said, "I feel better".
[2017-11-21 12:00] VITALS: BP 127/89
--- NOTE | 2017-11-21 12:05 | NUR ---
COWS 10- Pt has restless legs, sweats, malaise, anxiety, he has flat affect, and depressed mood. Pt is disheveled and unshaven.
--- NOTE | 2017-11-21 15:00 | NUR ---
Pt refused IV Ancef. Does not want IV inserted again since he is difficult to draw blood and start IV. Pt really wants PO antibiotics. Charge nurse notified, infectious disease Dr. Edge notified, he will be in to see patient today. Dr. Okeefe notified as well.
[2017-11-21 16:00] VITALS: BP 126/82
--- NOTE | 2017-11-21 16:13 | NUR ---
COWS 7- Pt c/o anxiety, malaise, agitation, and restlessness. Pt paces around unit and goes to patio frequently. He has flat affect, and depressed mood.
--- NOTE | 2017-11-21 18:47 | NUR ---
End of shift Last COWS 7 at 1600. Pt completed his 5 day Subutex taper. Pt continues to have anxiety, sweats/ chills, restless legs, fatigue, he has flat affect, and depressed mood. Room remains cluttered with wrappers and empty water bottles. Drinks and food spilled on floor, in his bed and on his tray. Tentative plans for discharge tomorrow. Pt saline lock infiltrated and came out. Pt did not want it put back in. He is a difficult stick for blood draws and IV insertion. Pt refused 1400 Ancef IV antibiotic and wants PO antibiotics instead. Pt has an abscess in his left buttock. Dressing change completed. Wound pink with sanguineous drainage. Upper buttock hard with bruising. PO fluids 1605ml, voids x3, BMx1. PRN give; Vistaril and Toradol. Fall precautions and all safety measures in place. Side rails up x2. Call light functioning and within reach. All needs attended and met. Will continue to assess for withdrawal symptoms. Endorsed to PM shift.
--- NOTE | 2017-11-21 19:53 | NUR ---
START OF SHIFT NOTE Rcvd report from outgoing nurse. Pt is a 22 y/o male A/O to person, place, time, and purpose. Pt was admitted for medically supervised withdrawal from Xanax and Heroin. Pt completed a 5 day Subutex taper and is scheduled for discharge 11/22. Pt has been presenting w/ anxiety, restlessness, flat affect, and depressed mood. PRN Vistaril was given for anxiety and Toradol for pain, both noted effective by outgoing nurse. Pts peripheral IV became infiltrated and was removed. Pt refused another IV access to be placed. As a result evening dose of Anceph was refused by pt. made aware and will switch pt to PO antibiotics. Last COWS 7 @ 1600. Call light is within reach. Pt will continue to be monitored and needs met.
--- NOTE | 2017-11-21 20:09 | NUR ---
COWS ASSESSMENT COWS 5. Pt has been presenting w/ anxiety, restlessness, flat affect, and depressed mood. V/S: T:98.1, P:94, RR:18, SPO2:99, BP:133/87
[2017-11-21 20:25] VITALS: BP 133/89
[2017-11-21] MEDS: CEPHALEXIN MONOHYDRATE 500 MG CAPSULE PO SCH (21:47)
[2017-11-21] MEDS: QUETIAPINE FUMARATE 100 MG TABLET PO PRN (21:47)
--- NOTE | 2017-11-21 21:47 | NUR ---
PRN SEROQUEL ADMINISTRATION Seroquel 150mg given for sleep. Pt states has been having insomnia the last couple of nights. Will reassess pt in 1 hr.
--- NOTE | 2017-11-21 22:47 | NUR ---
PRN SEROQUEL REASSESSMENT Pt is in bed w/ his eyes closed. Pt's respirations are unlabored and even.
--- NOTE | 2017-11-22 00:16 | NUR ---
COWS DEFERRED. V/S REFUSED Pt is in bed w/ his eyes closed. Pt's respirations are unlabored and even.
--- NOTE | 2017-11-22 04:09 | NUR ---
COWS DEFERRED. V/S REFUSED Pt is in bed w/ his eyes closed. Pt's respirations are unlabored and even.
[2017-11-22] MEDS: CEPHALEXIN MONOHYDRATE 500 MG CAPSULE PO SCH (06:48)
--- NOTE | 2017-11-22 07:11 | NUR ---
END OF SHIFT NOTE Endorsed pt to oncoming nurse. Pt is a 22 y/o male A/O to person, place, time, and purpose. Pt was admitted for medically supervised withdrawal from Xanax and Heroin. Pt completed a 5 day Subutex taper and is scheduled for discharge 11/22. Pt continues presenting w/ anxiety, restlessness, flat affect, and depressed mood. Pt denies S/I and H/I. PRN Seroquel 150mg given for sleep, noted effective. Pt continued to refuse another IV placement. spoke to pt and placed him on Keflex 500mg PO. Pt also refused drsg change during the night stating that he was tired of being poked and going through pain. Pts fluid intake was 1350ml and he slept for 9hrs. Last COWS 5 @ 2000. Call light is within reach.
--- NOTE | 2017-11-22 07:40 | NUR ---
STAR T OF SHIFT Received report from maintenance supervisor 2nd shift. Pt is lying in bed resting and is easily arousable. He is a 22 yo male admitted to [facility] on 11/15 for Opiate withdrawal with a h/o using BZDs. 5 Day Subutex taper complete and he is scheduled for discharge this afternoon. Pt had a surgical I&D of left buttock abscess with wound care BID. Pt is ordered PO abx. PRN Seroquel administered on maintenance supervisor 2nd shift. Last COWS 5 and he slept for 9 hours. Respirations even and unlabored.
[2017-11-22 08:00] VITALS: BP 90/64
--- NOTE | 2017-11-22 09:15 | NUR ---
COWS Assessment Pt reports mild anxiety and mild body aches with slight nasal stuffiness. No other s/s of withdrawal reported or observed. COWS score 3.
[2017-11-22] MEDS: KETOROLAC TROMETHAMINE 30 MG INJ IM PRN (10:11)
--- NOTE | 2017-11-22 10:15 | NUR ---
PRN Toradol administration Pt experiences pain during the wound packing of left buttock drained abscess. PRN Toradol administered prior to the wound care.
--- NOTE | 2017-11-22 11:15 | NUR ---
PRN Toradol reassessment PRN Toradol effective at relieving some of the pain during wound packing. Pt reports pain level 4/10.
--- NOTE | 2017-11-22 11:15 | NUR ---
Nursing Note Wound care performed per orders. Pt received Toradol prior for pain management. Soiled dressing noted with scant amount of serosanguineous drainage. Wound is observed to be pink and red. Mild bruising observed around other areas of the buttocks r/t IM drug use. Pt tolerated the wound care with a pain level 4/10.
[2017-11-22] MEDS: SODIUM HYPOCHLORITE 0.125% 473 ML BOTTLE TP SCH (11:16)
[2017-11-22 12:30] VITALS: BP 130/85
--- NOTE | 2017-11-22 12:30 | NUR ---
COWS assessment Pt reports mild anxiety and mild body aches. COWS score 3.
--- NOTE | 2017-11-22 14:15 | NUR ---
Discharge Pt is stable. Vitals WNL and he is A&O x4. Wound care performed per orders prior to discharge. Pt denies any SI/HI. All discharge paperwork completed, dated, and signed. Pt educated about discharge instructions and what to do after discharge. Pt verbalized understanding. Last COWS was 3 at 1230. Pt was discharged from [facility] on 11/22/17 at 1410. Pt left the building with all of his belongings and prescriptions. MD and Psychiatrist aware of pt's discharge.
== END 2017-11-22 14:10 | disposition home or self-care (01) | DRG 895 ==
LOC: SRC 22:25
PROVIDERS: ADMIT Family Medicine Addiction Medicine; ATTEND Family Medicine Addiction Medicine
PROC: HZ2ZZZZ Detoxification Services for Substance Abuse Treatment (ICD-10-PCS; principal; 2017-11-15)
PROC: HZ31ZZZ Individual Counseling for Substance Abuse Treatment, Behavioral (ICD-10-PCS; 2017-11-16)
PROC: HZ41ZZZ Group Counseling for Substance Abuse Treatment, Behavioral (ICD-10-PCS; 2017-11-18)
DX: F11.23 Opioid dependence with withdrawal (principal); L03.317 Cellulitis of buttock; L02.31 Cutaneous abscess of buttock; F13.230 Sedative, hypnotic or anxiolytic dependence with withdrawal, uncomplicated; F41.9 Anxiety disorder, unspecified; F90.9 Attention-deficit hyperactivity disorder, unspecified type; B95.4 Other streptococcus as the cause of diseases classified elsewhere; B95.61 Methicillin susceptible Staphylococcus aureus infection as the cause of diseases classified elsewhere; S31.82 Open wound of left buttock; X78.8XXS Intentional self-harm by other sharp object, sequela; F32.9 Major depressive disorder, single episode, unspecified; F17.210 Nicotine dependence, cigarettes, uncomplicated; D72.819 Decreased white blood cell count, unspecified; D64.9 Anemia, unspecified; R94.6 Abnormal results of thyroid function studies
CPT/HCPCS: 36415; 70030-TC; 80307; 80361; 83690; 83735; 84443; 85025; 85730; 86580; 86592; 86705; 86803; 87070; 87075; 87077; 87340; 87806; A4663; G0480; J0690; J1885; J3370

== ENCOUNTER 2017-11-17 14:38 | Outpatient (CLI) | payer BC ==
[~2017-11-17 14:38] MED LIST changes: -CLON0.1T14 PO; -DICY20TA28 PO; -GABA-534 PO; -HYDR-3895 PO; -IBUP-1955 PO; -METH-406 PO
[2017-11-17] MEDS ORDERED: NORMAL SALINE FLUSH 10 ML DISP.SYRIN ONE (15:16)
[2017-11-17] MEDS ORDERED: IV NORMAL SALINE 250 ML IV ONE (15:16)
[2017-11-17] MEDS ORDERED: SWABABLE VALVE TRANSFER SET EA MC ONE (15:16)
[2017-11-17] MEDS ORDERED: IOHEXOL 300MG/ML 100 ML INFUS..BTL ONE (15:16)
== END 2017-11-17 23:59 | disposition home or self-care (01) ==
LOC: CT 14:38
PROVIDERS: ATTEND Family Medicine Addiction Medicine
DX: L02.31 Cutaneous abscess of buttock (principal); S31.829A Unspecified open wound of left buttock, initial encounter
CPT/HCPCS: 72193; J3490; J7050; Q9967

== ENCOUNTER → 2017-11-18 | Day surgery (SDC) | payer BC ==
[~2017-11-18] MED LIST changes: +CEFAZOLIN 1 G VIAL MC ONE; +DEXAMETHASONE SOD PHOSPHATE 4 MG INJ IV ONE; +IV NORMAL SALINE 1000 ML BAG IV ONE; +KETOROLAC TROMETHAMINE 30 MG INJ IM ONE; +LIDOCAINE-MPF 2% 5 ML VIAL MC ONE; +ONDANSETRON 4 MG/2 ML VIAL IV ONE; +POLYMYXIN B SULFATE 500,000 UNITS, BACITRACIN 50,000 UNITS, NORMAL SALINE 20 ML MC ONE; +PROPOFOL 200 MG/20 ML BOTTLE IV ONE; +SEVOFLURANE 250 ML BOTTLE IH ONE
== END | disposition home or self-care (01) ==
LOC: DS 08:41
PROVIDERS: ATTEND Surgery
DX: L02.31 Cutaneous abscess of buttock (principal)
CPT/HCPCS: A4649; J0690; J1100; J1885; J2405; J3490; J7030

== ENCOUNTER 2017-12-01 18:00 | Inpatient (IN) | payer BC, OTHER ==
[~2017-12-01] VITALS: Ht 177.8 cm; Wt 56.7 kg
--- NOTE | 2017-12-01 18:42 | NUR ---
Pre-Admission Note Received pt at intake. Pt is a 22 y/o M admitted for medically supervised heroin withdrawal. Pt is friendly but nervous, has poor eye contact, disheveled appearance, dirty fingernails, hair is unkempt, clothes are dirty, and pt is odorous. Pt verbalizes, "I don't feel that good," presents goosebumps, cold/hot flashes, anxiety, restlessness, pupils larger than normal, generalized body aches. Pt reports he was just here at [facility] 2 weeks ago and relasped immediately after discharge. Pt reports he had SX here at [facility] on an abscess and recently finished his Keflex abx. Pt verbalized he feels the abscess needs to examined.Reports NKA. Pt reports having Hep C otherwise no medical conditions; psych Hx of anxiety, ADHD. Pt reports a hx of a heroin overdose in 2014 where he became unconscious and was taken to the hospital via ambulance. Initial VS are BP: 129/77, HR: 118, RR: 18, O2sat: 96% Ht: 5'10, WT 125 lb. Substance Use Hx: 1. Heroin 1g IV and IM (depending if pt can find a vein) x 2 weeks. Last use was yesterday @1900 11/30/17, however pt also stated he did a "cotton shot" this morning. Pt reports using since age 17.
[2017-12-01] MEDS ORDERED: METHOCARBAMOL 750 MG TABLET PO PRN (19:00)
[2017-12-01] MEDS ORDERED: IBUPROFEN 600 MG TABLET PO PRN (19:00)
[2017-12-01] MEDS ORDERED: ACETAMINOPHEN 325 MG TABLET PO PRN (19:00)
[2017-12-01] MEDS ORDERED: HYDROXYZINE PAMOATE 25 MG CAPSULE PO PRN (19:00)
[2017-12-01] MEDS ORDERED: MAG HYDROX/AL HYDROX/SIMETH 30 ML LIQUID UDC PO PRN (19:00)
[2017-12-01] MEDS ORDERED: ONDANSETRON ODT 4 MG TAB.RAPDIS SL PRN (19:00)
[2017-12-01] MEDS ORDERED: BUPRENORPHINE HCL 2 MG TAB.SUBL SL PRN (19:00)
[2017-12-01] MEDS ORDERED: LOPERAMIDE HCL 2 MG CAPSULE PO PRN ×2 (19:00)
[2017-12-01] MEDS ORDERED: MAGNESIUM HYDROXIDE 30 ML LIQUID UDC PO PRN (19:00)
[2017-12-01] MEDS ORDERED: DICYCLOMINE HCL 20 MG TABLET PO PRN (19:00)
--- NOTE | 2017-12-01 19:40 | NUR ---
End of Shift Pt is laying in bed watching tv, and eating. Photo taken of wound area on L buttocks. Endorsement given to medical administrative specialist nurse.
--- NOTE | 2017-12-01 19:50 | NUR ---
Admission Note Patient is 22 [id number] admitted 12/01/2017 for Heroin withdrawal, arrived on unit [facility]. Patient also has used Xanax for 7 years and uses it intermittent; patient last used Xanax on October 2017 and has not used since then. Patient reports last using heroin on 11/30/2017 0.5 gram IV at 1900. Patient presents with anxiety, restlessness and tremors. Patient appears disheveled, avoids eye contact, withdrawn and depressed. When asked for reason for seeking treatment patient verbalized "I dont know but I just dont feel good." Patient states that his motivator to get sober is: "I want to finish school; I want to study history and eventually go to law school." Patient is alert oriented x4, ambulatory with a steady gait. Initial COWS assessment is 15. Patient has no known allergies with a regular diet and full code. Patient states that when he experiences withdrawal he feels: anxious, headache, nausea and vomiting, tremors and agitation. Patient denies having seizure history. Patient admits having one overdose in 2014 and he did receive medical treatment; he does not recall the month. Patient denies withdrawal induced delirium; withdrawal induced cardiac complications and blackouts. Patient has a history of bronchial cleft excision surgery in 2016 and deviated septum repair in 2012. Patient admits having legal consequences related to Heroin addiction. Substance Abuse History: 1) Heroin IV/IM 1 gram daily, for the past 2 weeks. Patient reported he started using heroin at age 17. Patient states he last used heroin on 11/30/2017 at 1900, 0.50 gram IV. 2) Xanax PO 2 mg intermittent, for 6-7 months. Patient reports he started using Xanax at age [age] years old. Patient states last used in October 2017 2mg PO intermittent. Patient states he is back in treatment at [facility] because I want to stay sober and I just keep falling back into the same cycle. When asked how this admission would be different, patient answered: I have goals and I want to commit to them. Patient reports attending treatment centers as follow: [facility], [facility] 2017 and some place in [place] in 2013 and does not recall the month. Patient admits on relapsing when he got discharged on 11/22/2017. Patient reports being sober for 2 weeks in April 2017 after discharge from [facility], and has struggled with sobriety for many years. He said he relapse because: "my girlfriend was put in a 5150 and she got discharge and I went to pick her up and we started using again." Patient stated that girlfriend also uses drugs and negatively influence his sobriety. His support system consists of his family and girlfriend. Patient reported taking Seroquel 100 mg PO at bedtime from previous admissions to help sleep. Patient denies having a primary care physician and psychiatrist. Patient is 510 and weights 125 lb per standing scale. Patients skin is intact, dry, warm, and capillary refill is <3 seconds. Patient was noted upon admissions with a left buttocks open abscess and pictures were taken. Patient had I&D surgery perform here at [facility] on 11/16/2017. The incision is noted to be healing and no sign or symptoms of infection are present but wound consult is being requested. Patient said he constantly uses the buttocks to inject himself with heroin. PERRLA is present, pupils 2 mm bilaterally. Lung sounds are clear bilaterally, abdomen is soft and non tender, bowel sounds are present in all four quadrants, patient admits of having a bowel movement on 11/30/2017 and has bowel movement every other day. Initial vital signs are as follow: BP: 129/77, HR: 118, RR: 18, O2sat: 96% on room air, patient denies pain. Respirations are even and unlabored. Patient reports mother having history of alcohol abuse. Patient has been oriented to unit, teaching was provided and policies were reviewed. Patient provided urine upon admissions and blood work was obtained at unit. Patient is on fall precautions and safety measures in place, side rails up x2, bed locked to low position, call light within reach. No pending medications are ordered. Will continue to monitor. Addendum: 12/02/17 at 0702 by SALVADOR JIN RN Patient was using Heroin for 7 days, after discharge from [facility] on 11/22/2017.
[2017-12-01 20:00] VITALS: BP 132/78
--- NOTE | 2017-12-01 20:00 | NUR ---
COWS Assessment Patient reports s/s of withdrawal as follow: anxiety, agitation, stomach spasms, restless, insomnia, body aches, chills and cannot sit still. COWS is 15. Respirations are even and unlabored. Safety measures in place. Will continue to monitor.
[2017-12-01] MEDS: CLONIDINE HCL 0.1 MG TABLET PO PRN (20:20)
[2017-12-01] MEDS: diphenhydrAMINE 50 MG CAPSULE PO PRN (20:20)
--- NOTE | 2017-12-01 20:21 | NUR ---
PRN Benadryl 50mg, Bentyl 20mg, Clonidine 0.1 mg Patient reports anxiety, agitation, stomach spasms, restless, insomnia, body aches, chills and cannot sit still. COWS is 15. Administered PRN Benadryl 50mg, Bentyl 20mg, and Clonidine 0.1 mg, tolerated well. Safety measures in place. Will continue to monitor.
[2017-12-01 20:27] LABS: *AMPHETAMINE, URINE NEGATIVE (NEGATIVE); *BARBITURATE, URINE NEGATIVE (NEGATIVE); *CANNABINOID, URINE NEGATIVE (NEGATIVE); *COCCAINE, URINE NEGATIVE (NEGATIVE); *OPIATE, URINE POSITIVE (NEGATIVE); *PHENCYCLIDINE SCREEN,URINE NEGATIVE (NEGATIVE)
--- NOTE | 2017-12-01 21:21 | NUR ---
PRN Benadryl 50mg, Bentyl 20mg, Clonidine 0.1 mg Reassessment Patient is noted in bed watching tv and is patient stated he feels better and is ready to go to sleep. Respirations are even and unlabored. Safety measures in place. Will continue to monitor.
[2017-12-01 22:10] LABS: BASOPHILS % (AUTO) 0.6 % (0.0-2.0); EOSINOPHILS # (AUTO) 0.1 K/uL (0.0-0.7); EOSINOPHILS % (AUTO) 1.1 % (0.0-7.0); HEMATOCRIT 33.3 % (36.7-47.1); HEMOGLOBIN 11.6 g/dL (12.5-16.3); LYMPHOCYTES % (AUTO) 15.5 % (20.5-51.5); MEAN CORPUSCULAR HGB CONC 35 g/dL (32.5-36.3); MEAN CORPUSCULAR VOLUME 83.6 fL (73.0-96.2); MONOCYTES # (AUTO) 0.5 K/uL (2.0-10.0); MONOCYTES % (AUTO) 7.5 % (0.0-11.0); NEUTROPHILS # (AUTO) 4.9 K/uL (1.8-8.9); NEUTROPHILS % (AUTO) 75.3 % (38.5-71.5); PLATELET COUNT (AUTO) 221 K/uL (152-348); RED BLOOD CELL COUNT(AUTO) 3.99 MIL/uL (4.06-5.63); WHITE BLOOD COUNT (AUTO) 6.5 K/uL (3.6-10.2)
[2017-12-01 22:31] LABS: ALANINE AMINOTRANSFERASE 24 U/L (16-63); ALKALINE PHOSPHATASE 79 U/L (50-136); ASPARTATE AMINOTRANSFERASE 18 U/L (15-37); BILIRUBIN,TOTAL 0.3 mg/dL (0.2-1.0); CARBON DIOXIDE 25 mmol/L (21-32); CHLORIDE 107 mmol/L (98-107); CREATININE 0.9 mg/dL (0.6-1.3); GLUCOSE 123 mg/dL (74-106); TOTAL PROTEIN, SERUM 7.1 g/dL (6.4-8.2); UREA NITROGEN, BLOOD 8 mg/dL (7-18)
[2017-12-01 22:40] LABS: THYROID STIMULATING HORMONE 0.363 mIU/mL (0.358-3.740)
[2017-12-01 22:43] LABS: ETHANOL < 3 MG/DL (0-0)
[2017-12-02] VITALS: BP 115/67
--- NOTE | 2017-12-02 | NUR ---
COWS Deferred Patient noted in bed resting with eyes closed, breathing even and unlabored. Per protocol COWS is to be assessed while awake. Safety measures in place and will continue to monitor.
[2017-12-02 04:00] VITALS: BP 127/72
--- NOTE | 2017-12-02 07:26 | NUR ---
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 Patients last COWS is 15. Patient is on a 3 day Subutex taper starts on 12/02/2017. Patient is on Fall precautions. Patient is depressed, flat affect, dishevel, poor eye contact, and restless. Patient was discharge from [facility] 11/22/2017 and relapse after discharge. Patient had PRN Benadryl, Bentyl, and Clonidine. Patient slept for 7 hours and had a total intake of 1,200ml. Voided x2 and had no bowel movements. Respirations are even and unlabored. Safety measures in place, bed lock in low position, side rails up x2, and call light within reach. Will endorse to day shift.
[2017-12-02 08:00] VITALS: BP 109/68
--- NOTE | 2017-12-02 08:23 | NUR ---
START OF SHIFT: Received Pt A/O x 4. He presents restless, fidgety and disheveled.He is odorous. He reports anxiety,restlessness,irritability,sweats,chills and depression. Cows 15. Modified Subutex taper started this morning to manage s/s of w/d. Encouraged increased fluids to assist in facilitating detox process. Will continue to monitor and offer support.
[2017-12-02] MEDS ORDERED: 3 DAY TAPER BUPRENORPHINE -SERENITY PROTOCOL SL PRN (09:00)
[2017-12-02] MEDS ORDERED: TUBERCULIN,PURIF.PROT.DERIV. 5 TU/0.1 ML TEST ID ONE (09:00)
[2017-12-02] MEDS: BUPRENORPHINE HCL 2 MG TAB.SUBL SL SCH ×2 (09:54→22:34)
[2017-12-02] MEDS: MULTIVITAMINS,THERAPEUTIC TABLET PO SCH (09:54)
[2017-12-02 12:00] VITALS: BP 112/76
--- NOTE | 2017-12-02 12:10 | NUR ---
COWS 9 He reports sweats,anxiety and body aches.
--- NOTE | 2017-12-02 13:45 | NUR ---
Therapist prompted client to attend group therapy.
[2017-12-02 16:00] VITALS: BP 110/68
[2017-12-02] MEDS: NEOMY/BACITRAC/POLYMI OINT 28.35 GM TUBE TOP SCH (17:15)
--- NOTE | 2017-12-02 18:43 | NUR ---
END OF SHIFT: Pt continues on Subutex taper to manage s/s of w/d which include anxiety,sweats and body aches. Last COWS 9. He attended groups and interacted with peers. HEALTH CARE FACILITY ADMINISTRATOR assessed Pt's buttocks wound and she reports that she just wants a band aid and some triple antibiotic ointment . She was pleased with the wound and how it has healed. He was compliant with increased fluids. Will pass shift report to oncoming night nurse.
--- NOTE | 2017-12-02 19:30 | NUR ---
Start of shift Patient is a 22 year old male admitted on 12/01/2017 here at [facility] for medically supervised withdrawal from Heroin. Patients last COWS is 9. Patient is on a 3 day Subutex taper started today 12/02/2017. Patients last COWS was 9. Per report patient did not have PRN medications during day shift. Patient is on Fall precautions. Upon rounds patient was noted in bed watching tv, patient showered and was combing hair. Patient is friendly, cooperative, easily distracted and pressured speech. Reviewed 2100 medications and patient verbalized understanding of plan of care. Patient explain he is planning in moving back to [place] for treatment after discharge to get sober. Reports he had a bowel movement today 12/02/2017. Respirations are even and unlabored. Safety measures in place, bed lock in low position, side rails up x2, and call light within reach. Will endorse to day shift.
[2017-12-02 20:00] VITALS: BP 127/74
--- NOTE | 2017-12-02 20:00 | NUR ---
COWS Assessment Patient reports s/s of withdrawal as follow: tremors, sweats, anxiety, myalgia, agitation, and runny nose that is on and off. Patients COWS is 8. Respirations are even and unlabored. Safety measures in place. Will continue to monitor.
[2017-12-02] MEDS: diphenhydrAMINE 50 MG CAPSULE PO PRN (22:33)
[2017-12-02] MEDS: CLONIDINE HCL 0.1 MG TABLET PO PRN (22:34)
--- NOTE | 2017-12-02 22:34 | NUR ---
PRN Benadryl and Clonidine Patient was experiencing insomnia and anxiety. Patient reports "I can't fall asleep, I feel anxious." Administered PRN Benadryl 50 mg and Clonidine 0.1mg and was tolerated well. Reparations are even and unlabored. Safety measures in place. Will continue to monitor.
--- NOTE | 2017-12-02 23:34 | NUR ---
PRN Benadryl and Clonidine Reassessment Patient was noted in bed watching tv, he reports he feels better and that will go to sleep soon. Patient admits medication was effective. He reported decreased anxiety. No s/s of adverse effects. Safety measures in place. Will continue to monitor patient.
[2017-12-03] VITALS: BP 122/75
--- NOTE | 2017-12-03 | NUR ---
COWS Assessment Patient reports s/s of withdrawal as follow: tremors, myalgia, sweats, goosebump, anxiety, and agitation. Patients COWS is 9. Respirations are even and unlabored. Safety measures in place. Will continue to monitor.
[2017-12-03 04:00] VITALS: BP 110/79
[2017-12-03 04:08] LABS: HEPATITIS B SURFACE AG Negative (Negative)
--- NOTE | 2017-12-03 07:34 | NUR ---
End of shift Patient is a 22 year old male admitted on 12/01/2017 here at [facility] for medically supervised withdrawal from Heroin. Patients last COWS is 9. Patient is on a 3 day Subutex taper started today 12/02/2017. Patients last COWS was 9. Patient had PRN Benadryl and Clonidine during this shift. Patient is on Fall precautions. Patient took a showered before bed. Patient slept for 7 hours and total intake is 1,065 ml. Patient voided x2 and had no bowel movements. Respirations are even and unlabored. Safety measures in place, bed lock in low position, side rails up x2, and call light within reach. Will endorse to day shift.
--- NOTE | 2017-12-03 07:38 | NUR ---
WOUND CARE CONSULT WOUND CARE RECEIVED CONSULT FOR BUTTOCK ABSCESS. WOUND CARE WILL DEFER CONSULT AND ALL TREATMENT PLANS TO SURGICAL TEAM WHO ARE CURRENTLY FOLLOWING. WILL SEE PRN. PATIENT WITH CURRENT STEVE AT 22.
[2017-12-03 08:00] VITALS: BP 90/60
--- NOTE | 2017-12-03 08:20 | NUR ---
START OF SHIFT: Received Pt A/O x 4. He presents with anxious mood and congruent affect. He is disheveled and odorous. He reports anxiety,restlessness,sweats and irritability. Cows 8. Modified Subutex taper in progress to manage s/s of w/d. Encouraged increased fluids to assist in facilitating detox process.Encouraged group attendance to improve coping skills and prevent relapse. Will continue to monitor and offer support.
[2017-12-03] MEDS: MULTIVITAMINS,THERAPEUTIC TABLET PO SCH (09:12)
[2017-12-03] MEDS: NEOMY/BACITRAC/POLYMI OINT 28.35 GM TUBE TOP SCH (09:12)
[2017-12-03] MEDS: BUPRENORPHINE HCL 2 MG TAB.SUBL SL SCH ×3 (09:12→21:07)
[2017-12-03 12:00] VITALS: BP 111/66
[2017-12-03 16:00] VITALS: BP 120/75
[2017-12-03 17:43] LABS: BASOPHILS # (AUTO) 0.1 K/uL (0.0-8.0); BASOPHILS % (AUTO) 0.8 % (0.0-2.0); EOSINOPHILS # (AUTO) 0.1 K/uL (0.0-0.7); HEMATOCRIT 41.6 % (36.7-47.1); HEMOGLOBIN 13.8 g/dL (12.5-16.3); LYMPHOCYTES # (AUTO) 1.8 K/uL (20.0-40.0); LYMPHOCYTES % (AUTO) 25.9 % (20.5-51.5); MEAN CORPUSCULAR HEMOGLOBIN 28.2 uug (23.8-33.4); MEAN CORPUSCULAR HGB CONC 33 g/dL (32.5-36.3); MEAN CORPUSCULAR VOLUME 84.9 fL (73.0-96.2); MONOCYTES # (AUTO) 0.5 K/uL (2.0-10.0); MONOCYTES % (AUTO) 6.5 % (0.0-11.0); NEUTROPHILS # (AUTO) 4.6 K/uL (1.8-8.9); NEUTROPHILS % (AUTO) 64.8 % (38.5-71.5); PLATELET COUNT (AUTO) 260 K/uL (152-348); RED BLOOD CELL COUNT(AUTO) 4.91 MIL/uL (4.06-5.63); WHITE BLOOD COUNT (AUTO) 7.1 K/uL (3.6-10.2)
--- NOTE | 2017-12-03 19:04 | NUR ---
END OF SHIFT: Pt continues on Subutex taper to manage s/s of w/d which include anxiety,sweats and body aches. Last COWS 6. He attended groups and interacted with peers. Triple ABT ointment applied to buttocks and covered with a band aid. He was compliant with increased fluids and groups. Will pass shift report to oncoming night nurse.
[2017-12-03 20:00] VITALS: BP 128/81
--- NOTE | 2017-12-03 20:00 | NUR ---
Start of Shift Patient appears flushed and with sweating. Patient observed to be melancholic and is isolative. Patient avoids conversation and is disheveled, unkempt and with strong body odor. Encouraged patient to take a shower and educated re importance of good hygiene. Patient also has increasing anxiety, tremors and c/o restless legs. Patient with generalized muscle pain=3/10. Fall, universal, seizure and safety prec in place. Call light within reach. Latest COWS=12. Will continue to monitor.
--- NOTE | 2017-12-03 21:08 | NUR ---
PRN Robaxin Patient c/o generalized muscle pain=6/10. Administered Robaxin 750 mg PO PRN. Will reassess.
--- NOTE | 2017-12-03 22:08 | NUR ---
Robaxin reassess Patient verbalized pain level=2/10.
[2017-12-04] VITALS (7 sets, daily range): BP systolic 101–120; BP diastolic 64–80
--- NOTE | 2017-12-04 | NUR ---
COWS=10 Patient with anxiety, restless legs and continues to be disheveled and with strong body odor.
--- NOTE | 2017-12-04 05:01 | NUR ---
COWS=9 Patient appears flushed and with sweating and piloerection. Patient also verbalized experiencing intermittent anxiety. Addendum: 12/04/17 at 0502 by BEAR MCKAY RN COWS assessment done at 0400
--- NOTE | 2017-12-04 07:17 | NUR ---
End of Shift Patient continues to be melancholic and is isolative. With dressing on the left buttock clean, dry and intact. Patient appears disheveled, unkempt and malodorous. Patient stated that he will take a shower this morning. Patient throughout the night has verbalized periods of anxiety and restless legs. Fall, universal, seizure and safety prec in place. Call light within reach. Latest COWS=9, slept for 4 hours. Endorsed to AM shift nurse for continuity of care.
--- NOTE | 2017-12-04 07:41 | NUR ---
Start of shift Pt admitted for medically supervised withdrawal of Heroin and Benzo. Last COWS 9 at 0500. Pt is on 3 day Subutex taper. Pt affect is guarded, anhedonia, dysphoria ,flat, and depressed mood. He is disheveled and malodorous, room is cluttered with wrappers, empty water bottles, clothes and used linens. Drinks and food spilled on floor, in his bed and on his tray. Pt withdrawal symptoms include anxiety, fine tremors, restless legs, sweats, moist skin, chills. Pt slept 4 hours last night. Encouraged Pt to attend group therapy sessions to identify positive coping skills to maintain sobriety. Fall and Seizure Precautions. Bed in lowest position. Side rails up x2. Call light functioning and within reach. All needs attended and met. Will continue to monitor for withdrawal symptoms.
--- NOTE | 2017-12-04 08:15 | NUR ---
COWS 9- Pt withdrawal symptoms include piloerection of skin, anxiety, fine tremors, nasal stuffy, and fatigue.
[2017-12-04] MEDS: MULTIVITAMINS,THERAPEUTIC TABLET PO SCH (09:00)
[2017-12-04] MEDS: NEOMY/BACITRAC/POLYMI OINT 28.35 GM TUBE TOP SCH (09:00)
[2017-12-04] MEDS ORDERED: BUPRENORPHINE HCL 2 MG TAB.SUBL SL SCH (09:00)
[2017-12-04 09:10] LABS: BASOPHILS # (AUTO) 0.1 K/uL (0.0-8.0); BASOPHILS % (AUTO) 0.9 % (0.0-2.0); EOSINOPHILS # (AUTO) 0.2 K/uL (0.0-0.7); EOSINOPHILS % (AUTO) 3.1 % (0.0-7.0); HEMATOCRIT 39.1 % (36.7-47.1); HEMOGLOBIN 12.9 g/dL (12.5-16.3); LYMPHOCYTES # (AUTO) 2.1 K/uL (20.0-40.0); LYMPHOCYTES % (AUTO) 34.1 % (20.5-51.5); MEAN CORPUSCULAR HEMOGLOBIN 28.4 uug (23.8-33.4); MEAN CORPUSCULAR HGB CONC 33 g/dL (32.5-36.3); MEAN CORPUSCULAR VOLUME 85.8 fL (73.0-96.2); MONOCYTES # (AUTO) 0.4 K/uL (2.0-10.0); MONOCYTES % (AUTO) 7.3 % (0.0-11.0); NEUTROPHILS # (AUTO) 3.3 K/uL (1.8-8.9); NEUTROPHILS % (AUTO) 54.6 % (38.5-71.5); PLATELET COUNT (AUTO) 239 K/uL (152-348); RED BLOOD CELL COUNT(AUTO) 4.56 MIL/uL (4.06-5.63)
[2017-12-04 09:17] LABS: BILIRUBIN,TOTAL 0.2 mg/dL (0.2-1.0); CREATININE 0.8 mg/dL (0.6-1.3); POTASSIUM 4.2 mmol/L (3.5-5.1); TOTAL PROTEIN, SERUM 6.7 g/dL (6.4-8.2)
--- NOTE | 2017-12-04 10:14 | NUR ---
Wound treatment- cleanse healing abscess on left buttock with saline, then applied triple antibiotic ointment covered with bandage. Would pink, no drainage or odor.
--- NOTE | 2017-12-04 12:31 | NUR ---
COWS 9- Pt c/o anxiety, fine hand tremors, stuffy nose, he had piloerection of skin, and fatigue. His affect is flat with anhedonia and dysphoria.
--- NOTE | 2017-12-04 16:30 | NUR ---
COWS 9- Pt c/o malaise, anxiety and bilateral hand tremors. His affect is flat with anhedonia and dysphoria. He is nervouse about discharge tomorrow.
--- NOTE | 2017-12-04 18:38 | NUR ---
End of shift Pt admitted for medically supervised withdrawal of Heroin and Benzo. Last COWS 9 at 1600. Pt completed 3 day Subutex taper. Plans for discharge tomorrow at 0700. Pt affect remains guarded, anhedonia, dysphoria ,flat, and depressed mood. He is disheveled and malodorous, room is cluttered with wrappers, empty water bottles, and clothes. He has a healing abscess on left buttock. Wound pink, no drainage or odor. Dressed with triple antibiotic ointment and dressing. Pt withdrawal symptoms include anxiety, fine tremors, and restless legs. No PRN given today. Encouraged Pt to attend group therapy sessions to identify positive coping skills to maintain sobriety. Pt participated in both group therapy session today. PO fluids 1125 ml, voids x2, BMx1. Fall and Seizure Precautions. Bed in lowest position. Side rails up x2. Call light functioning and within reach. All needs attended and met. Will continue to monitor for withdrawal symptoms.
--- NOTE | 2017-12-04 19:43 | NUR ---
START OF SHIFT NOTE Rcvd report from outgoing nurse. Pt is a 22 y/o male A/O to person, place, time, and purpose. Pt was admitted for medically supervised withdrawal from Opiates. Pt completed a 3 day Subutex taper. Pt is being discharged on 12/05/18. Pt has been presenting w/ anxiety, depressed mood, restlessness, and stuffiness. No PRN medications were given during previous shift. Last COWS 9 @ 1600. Call light is within reach. Pt will continue to be monitored and needs met.
--- NOTE | 2017-12-04 20:07 | NUR ---
COWS ASSESSMENT COWS 8. Pt has been presenting w/ anxiety, depressed mood, restlessness, and stuffiness. V/S: T:98.4, P:94, RR:18, SPO2:99, BP:119/80.
--- NOTE | 2017-12-04 21:43 | NUR ---
PRN BENADRYL, CLONIDINE, AND VISTARIL ADMINISTRATION Benadryl 50mg given for sleep. Clonidine 0.1mg and Vistaril 50mg given for anxiety and agitation. Will reassess pt in 1 hr.
[2017-12-04] MEDS: CLONIDINE HCL 0.1 MG TABLET PO PRN (21:49)
[2017-12-04] MEDS: diphenhydrAMINE 50 MG CAPSULE PO PRN (21:49)
--- NOTE | 2017-12-04 22:43 | NUR ---
PRN BENADRYL, CLONIDINE, AND VISTARIL REASSESSMENT Pt states relief from anxiety and agitation. Pt states they are about to fall asleep. Will continue to monitor pt.
--- NOTE | 2017-12-05 00:02 | NUR ---
COWS DEFERRED. V/S REFUSED Pt is in bed w/ his eyes closed. pt's respirations are unlabored and even.
--- NOTE | 2017-12-05 04:07 | NUR ---
COWS DEFERRED. V/S REFUSED Pt is in bed w/ his eyes closed. Pt's respirations are unlabored and even.
[2017-12-05 06:47] VITALS: BP 116/63
--- NOTE | 2017-12-05 06:55 | NUR ---
DISCHARGE NOTE Pt in stable condition, V/S WNL, skin is intact, denies any S/I orH/I, all discharge paperwork signed and dated. Pt was discharged from [facility] on 12/05/17 @ 0655. Pt left the hospital w/ all of his medications, belongings, and prescriptions. was notified.
--- NOTE | 2017-12-05 07:15 | NUR ---
END OF SHIFT NOTE Endorsed pt to oncoming nurse. Pt is a 22 y/o male A/O to person, place, time, and purpose. Pt was admitted for medically supervised withdrawal from Opiates. Pt completed a 3 day Subutex taper. Pt was discharged on 12/05/18 @ 0655. Pt has been presenting w/ anxiety, depressed mood, restlessness, and stuffiness. PRN Benadryl for sleep, Clonidine for anxiety, and Vistaril for anxiety were given and noted effective. Pt denies any S/I or H/I. Pts fluid intake was 710ml and he slept for 6hrs. Last COWS 8 @ 1999.
== END 2017-12-05 06:55 | DRG 895 ==
LOC: SRC 18:00
PROVIDERS: ADMIT Family Medicine Addiction Medicine; ATTEND Family Medicine Addiction Medicine
PROC: HZ2ZZZZ Detoxification Services for Substance Abuse Treatment (ICD-10-PCS; principal; 2017-12-01)
PROC: HZ41ZZZ Group Counseling for Substance Abuse Treatment, Behavioral (ICD-10-PCS; 2017-12-03)
DX: F11.23 Opioid dependence with withdrawal (principal); F13.230 Sedative, hypnotic or anxiolytic dependence with withdrawal, uncomplicated; B19.20 Unspecified viral hepatitis C without hepatic coma; F17.210 Nicotine dependence, cigarettes, uncomplicated; D64.9 Anemia, unspecified; F41.9 Anxiety disorder, unspecified; F15.10 Other stimulant abuse, uncomplicated
CPT/HCPCS: 36415; 70030-TC; 80307; 80361; 83735; 84443; 85025; 86592; 86705; 86803; 87340; 87806; G0480; Q0163